=== PATIENT | male | born 1935 | race Caucasian/White ===

== ENCOUNTER 2018-04-13 07:33 | Day surgery (SDC) | payer MEDICARE ==
[~2018-04-13 07:33] MED LIST: MIDAZOLAM INJ 2 MG/2 ML VIAL (J2250) As Ordered; OFLOXACIN 0.3 % (OCUFLOX) OPTH SOL 5ML OS; PHENYLEPHRINE 2.5% OPHTH SOL 2ML OS; PROPARACAINE 0.5% OPHTH SOL 15ML OS; TROPICAMIDE 1% OPHTH SOLN 2ML OS; fentaNYL 100 MCG/2 ML INJECTION (J3010) As Ordered
[2018-04-13 08:09] LABS: BEDSIDE GLUCOSE 127 MG/DL (83-110)
[2018-04-13] MEDS: POVIDONE-IODINE 5% OPHTH PREP SOL 30ML As Ordered (08:37)
[2018-04-13] MEDS: LIDOCAINE 0.75%/EPINEPHRINE 0.025% IN BSS 1ML SYR INTRACAMERAL (OR ONLY) As Ordered (08:37)
[2018-04-13] MEDS: DUOVISC (0.50ML VISCOAT/0.55ML PROVISC) OPHTH KIT As Ordered (08:37)
[2018-04-13] MEDS: BALANCED SALT IRRIGATION SOLUTION 500ML BAG (FOR OR EYE MACHINE) As Ordered (08:37)
[2018-04-13] MEDS: CEFUROXIME 1MG/0.1ML INTRACAMERAL INJ As Ordered (08:37)
[2018-04-13] MEDS ORDERED: ESMOLOL INJ 100MG/10ML VIAL As Ordered (08:40)
== END 2018-04-13 09:35 | disposition home or self-care (01) ==
LOC: M SDC 07:33
DX: H25.12 Age-related nuclear cataract, left eye (principal); I10 Essential (primary) hypertension; E10.9 Type 1 diabetes mellitus without complications; M12.9 Arthropathy, unspecified; R06.02 Shortness of breath; R06.83 Snoring; Z79.899 Other long term (current) drug therapy; Z86.711 Personal history of pulmonary embolism; Z79.01 Long term (current) use of anticoagulants; Z79.4 Long term (current) use of insulin; Z72.0 Tobacco use
CPT/HCPCS: 66984

== ENCOUNTER 2018-05-11 07:24 | Day surgery (SDC) | payer MEDICARE ==
[~2018-05-11] VITALS: Ht 182.9 cm; Wt 89.5 kg
[~2018-05-11 07:24] MED LIST changes: +BALANCED SALT IRRIGATION SOLUTION 500ML BAG (FOR OR EYE MACHINE) As Ordered ONE; +CEFUROXIME 1MG/0.1ML INTRACAMERAL INJ As Ordered ONE; +DUOVISC (0.50ML VISCOAT/0.55ML PROVISC) OPHTH KIT As Ordered ONE; +LEVE1INJ5 SC; +LIDOCAINE 0.75%/EPINEPHRINE 0.025% IN BSS 1ML SYR INTRACAMERAL (OR ONLY) As Ordered ONE; +LISI40TAB PO; -MIDAZOLAM INJ 2 MG/2 ML VIAL (J2250) As Ordered; +MIDAZOLAM INJ 2 MG/2 ML VIAL (J2250) As Ordered ONE; +OFLOXACIN 0.3 % (OCUFLOX) OPTH SOL 5ML OD ONE; -OFLOXACIN 0.3 % (OCUFLOX) OPTH SOL 5ML OS; +PHENYLEPHRINE 2.5% OPHTH SOL 2ML OD ONE; -PHENYLEPHRINE 2.5% OPHTH SOL 2ML OS; +POVIDONE-IODINE 5% OPHTH PREP SOL 30ML As Ordered ONE; +PROBCAP4 PO; +PROPARACAINE 0.5% OPHTH SOL 15ML OD ONE; -PROPARACAINE 0.5% OPHTH SOL 15ML OS; +TROPICAMIDE 1% OPHTH SOLN 2ML OD ONE; -TROPICAMIDE 1% OPHTH SOLN 2ML OS; +TYLE500T78 PO; +VITA100067 PO; +XARE20TA PO; +[UNRECOGNIZED DRUG - REMARK]; -fentaNYL 100 MCG/2 ML INJECTION (J3010) As Ordered; +fentaNYL 100 MCG/2 ML INJECTION (J3010) As Ordered ONE
[2018-05-11] MEDS ORDERED: LABETALOL HCL 100 MG/20 ML VIAL As Ordered ONE (09:16)
[2018-05-11 09:50] VITALS: BP 185/84
--- NOTE | 2018-05-11 16:04 | RO ---
DATE OF PROCEDURE: 05/11/2018 PREOPERATIVE DIAGNOSIS: 1. Visually significant nuclear sclerotic cataract right eye. POSTOPERATIVE DIAGNOSIS: 1. Visually significant nuclear sclerotic cataract right eye. PROCEDURE: 1. Cataract extraction with use of phacoemulsification and placement of intraocular lens AU00T0, 20.5 D, right eye. SURGEON: Salvador Brownlee DO CLAIM TRAINEE: None. ANESTHESIA: Local with monitored anesthesia care (MAC). COMPLICATIONS: None. POSTOPERATIVE CONDITION: Stable. INDICATIONS FOR SURGERY: 1. Blurred vision affecting patients activities of daily living. DESCRIPTION OF PROCEDURE: The patient was seen in the preoperative area and properly identified. The correct operative eye was identified and marked. The patient received topical anesthetic, antibiotics, and topical dilating drops. The patient was then transferred to the operating room. The correct side was re-identified, and a time-out was performed. The eye was prepped and draped in a sterile fashion. The eyelids were isolated with Tegaderm tape, and the lids were held open with an adjustable speculum. A 1.0 mm paracentesis incision was made. Intraocular preservative-free Shugarcaine was then injected into the anterior chamber. Viscoelastic was then injected into the anterior chamber through the paracentesis. Using a 2.4 mm sharp-tipped keratome, the anterior chamber was entered via a temporal clear cornea incision. A continuous curvilinear capsulorrhexis was created with Utrata forceps. Hydrodissection was performed with balanced salt solution (BSS) on a blunt cannula until the nucleus was able to rotate freely. The crystalline lens was phacoemulsified and aspirated. Irrigation/aspiration was used to remove the cortical material. Cohesive viscoelastic was placed into the capsular bag to deepen it. The implant was placed into the capsular bag and allowed to unfold. Placement was confirmed by visualizing the anterior capsulorrhexis. Irrigation/aspiration was used to remove the viscoelastic. The clear corneal incision was hydrated with BSS on a blunt cannula. The lens was well positioned. The incisions were then tested for leaks and found to be negative. The eye was then palpated for appropriate pressure and adjusted accordingly with BSS. The eyelid speculum was then carefully removed. A shield was placed over the eye. The patient tolerated the procedure well and was discharged to the recovery unit in a stable condition. Edited: 05/11/2018 1611 vandana
== END 2018-05-11 09:56 | disposition home or self-care (01) ==
LOC: M SDC 07:24 → EDUNIT# 07:30 → M SDC 09:56
PROVIDERS: ATTEND Ophthalmology
DX: H25.11 Age-related nuclear cataract, right eye (principal); I10 Essential (primary) hypertension; E11.9 Type 2 diabetes mellitus without complications; Z79.4 Long term (current) use of insulin; Z79.01 Long term (current) use of anticoagulants; Z79.899 Other long term (current) drug therapy; F17.210 Nicotine dependence, cigarettes, uncomplicated
CPT/HCPCS: 66984; J2250; J3010; V2632

== ENCOUNTER 2018-05-21 20:12 | Emergency (ER) | payer MEDICARE ==
[~2018-05-21] VITALS: Ht 182.9 cm; Wt 88.6 kg
[~2018-05-21 20:12] MED LIST changes: -BALANCED SALT IRRIGATION SOLUTION 500ML BAG (FOR OR EYE MACHINE) As Ordered ONE; -CEFUROXIME 1MG/0.1ML INTRACAMERAL INJ As Ordered ONE; -DUOVISC (0.50ML VISCOAT/0.55ML PROVISC) OPHTH KIT As Ordered ONE; -LIDOCAINE 0.75%/EPINEPHRINE 0.025% IN BSS 1ML SYR INTRACAMERAL (OR ONLY) As Ordered ONE; +LISI40TA PO; -LISI40TAB PO; -MIDAZOLAM INJ 2 MG/2 ML VIAL (J2250) As Ordered ONE; -OFLOXACIN 0.3 % (OCUFLOX) OPTH SOL 5ML OD ONE; -PHENYLEPHRINE 2.5% OPHTH SOL 2ML OD ONE; -POVIDONE-IODINE 5% OPHTH PREP SOL 30ML As Ordered ONE; -PROPARACAINE 0.5% OPHTH SOL 15ML OD ONE; -TROPICAMIDE 1% OPHTH SOLN 2ML OD ONE; -fentaNYL 100 MCG/2 ML INJECTION (J3010) As Ordered ONE
[2018-05-21] MEDS ORDERED: ONDANSETRON 4MG/2ML VIAL (J2405) As Ordered ONE (20:38)
[2018-05-21] MEDS ORDERED: ONDANSETRON 4MG/2ML VIAL (J2405) IV ONE (20:45)
[2018-05-21 21:09] LABS: BASO # 0.1 10^3/uL (0.0-0.2); BASO % 0.7 % (0.0-1.0); EOS # 0.1 10^3/uL (0.0-0.50); EOS % 1.1 % (0.0-3.0); HEMATOCRIT 38.8 % (42.0-52.0); HEMOGLOBIN 12.7 g/dl (13.5-17.5); LYMPH # 2.3 10^3/uL (1.5-4.5); LYMPH % 24.6 % (24.0-44.0); MEAN CORPUSCULAR HGB CONC 32.7 g/dl (32.0-36.5); MEAN CORPUSCULAR VOLUME 100.8 fl (80.0-96.0); MONO # 0.6 10^3/uL (0.0-0.8); MONO % 6.5 % (0.0-5.0); NEUTROPHILS # 6.1 10^3/uL (1.8-7.7); NEUTROPHILS % 66.7 % (36.0-66.0); PLATELET COUNT, AUTOMATED 328 10^3/uL (150-450); RED BLOOD COUNT 3.85 10^6/uL (4.30-6.10); WHITE BLOOD COUNT 9.2 10^3/uL (4.0-10.0)
[2018-05-21] MEDS ORDERED: MECLIZINE 25 MG TABLET PO ONE (21:15)
[2018-05-21 21:19] VITALS: BP 165/79
[2018-05-21 21:26] LABS: ACETAMINOPHEN LEVEL < 2.0 UG/ML (10.0-30.0); ALBUMIN 3.1 GM/DL (3.2-5.2); ALT/SGPT 22 U/L (12-78); BILIRUBIN,DIRECT 0.2 MG/DL (0.0-0.2); BILIRUBIN,TOTAL 0.5 MG/DL (0.2-1.0); BLOOD UREA NITROGEN 22 MG/DL (7-18); CALCIUM LEVEL 9.3 MG/DL (8.8-10.2); CARBON DIOXIDE LEVEL 26 MEQ/L (21-32); CHLORIDE LEVEL 107 MEQ/L (98-107); CK-MB VALUE MASS < 1.0 NG/ML (<3.6); CPK CREATINE PHOSPHOKINASE 30 U/L (39-308); CREATININE FOR GFR 0.93 MG/DL (0.70-1.30); GLOMERULAR FILTRATION RATE > 60.0 (>35); GLUCOSE, FASTING 199 MG/DL (70-100); MB/CK RELATIVE INDEX 3.33 (< OR =4); POTASSIUM SERUM 4.3 MEQ/L (3.5-5.1); SALICYLATE LEVEL < 1.7 MG/DL (5.0-30.0); SODIUM LEVEL 142 MEQ/L (136-145); TOTAL PROTEIN 6.3 GM/DL (6.4-8.2); TROPONIN I < 0.02 NG/ML (< 0.10)
[2018-05-21] MEDS: NS 1,000 ML IV SCH ×2 (21:34→21:36)
--- NOTE | 2018-05-21 21:48 | REPVR ---
EXAM: CT Head Without Contrast EXAM DATE/TIME: 05/21/2018 8:48 PM CLINICAL HISTORY: 83 years old, male; Signs and symptoms; Dizziness; Additional info: Dizzy/weak TECHNIQUE: Axial computed tomography images of the head/brain without contrast. All CT scans at this facility use at least one of these dose optimization techniques: automated exposure control; mA and/or kV adjustment per patient size (includes targeted exams where dose is matched to clinical indication); or iterative reconstruction. COMPARISON: No relevant prior studies available. FINDINGS: Brain: There is age-related volume loss. There is white matter lucency indicating mild chronic microvascular disease. There is no infarct. There is no hemorrhage or extra-axial collection. There is no mass. Ventricles: Normal. No ventriculomegaly. Bones/joints: Normal. No acute fracture. Sinuses: Normal as visualized. No acute sinusitis. Mastoid air cells: Normal as visualized. No mastoid effusion. Soft tissues: Normal. IMPRESSION: There is mild chronic microvascular disease. There is no acute lesion or injury. Electronically signed by: Ian Cornejo On 05/21/2018 21:48:07 PM
[2018-05-21] MEDS ORDERED: ZOFR4TAB16 PO (22:08)
[2018-05-21] MEDS ORDERED: ONDANSETRON 4 MG TAB (S0181) PO ONE (22:15)
--- NOTE | 2018-05-22 14:42 | ECGEPIP ---
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
--- NOTE | 2018-05-22 14:43 | ECGEPIP ---
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
== END 2018-05-21 22:40 | disposition home or self-care (01) ==
LOC: M ED 20:12
DX: R11.2 Nausea with vomiting, unspecified (principal); E11.9 Type 2 diabetes mellitus without complications; I10 Essential (primary) hypertension; Z79.899 Other long term (current) drug therapy; Z79.01 Long term (current) use of anticoagulants
CPT/HCPCS: 70450; 80048; 80076; 82550; 82553; 84443; 84484; 85025; 93005; 93041; 94760; 96374; 99285; G0480; J2405

== ENCOUNTER → 2020-06-26 | Outpatient (CLI) | payer MEDICARE ==
[~2020-06-26] MED LIST changes: +CIPR-249 PO; +FLOM0.4C39 PO; -LISI40TA PO; +LISI40TA4 PO; +ZOFR4TAB16 PO
--- NOTE | 2020-06-26 09:07 | REP ---
INDICATION: CHEST PAIN ON BREATHING. COMPARISON: No comparison chest x-ray. TECHNIQUE: Two views.. FINDINGS: There are granulomatous calcifications scattered in the lung ma bilaterally. There is a pectus excavatum deformity visible on the lateral radiograph. This exaggerates the cardiac silhouette on the frontal view. The thoracic aorta is somewhat tortuous. Lung ma are otherwise clear. Pulmonary vasculature is not increased. No acute bony abnormality is seen. IMPRESSION: No active disease. Pectus deformity.. <Electronically signed by Shaun Jack > 06/26/20 0903
[2020-06-26 10:34] LABS: BASO # 0.1 10^3/uL (0.0-0.2); BASO % 0.8 % (0.0-1.0); EOS # 0.2 10^3/uL (0.0-0.5); EOS % 3.2 % (0.0-3.0); HEMATOCRIT 34.1 % (42.0-52.0); HEMOGLOBIN 10.8 g/dl (13.5-17.5); LYMPH # 1.8 10^3/uL (1.5-5.0); LYMPH % 29.5 % (24.0-44.0); MEAN CORPUSCULAR HEMOGLOBIN 32.2 pg (27.0-33.0); MEAN CORPUSCULAR HGB CONC 31.7 g/dl (32.0-36.5); MEAN CORPUSCULAR VOLUME 101.8 fl (80.0-96.0); MONO # 0.5 10^3/uL (0.0-0.8); MONO % 8.6 % (2.0-8.0); NEUTROPHILS # 3.6 10^3/uL (1.5-8.5); NEUTROPHILS % 57.7 % (36.0-66.0); PLATELET COUNT, AUTOMATED 258 10^3/uL (150-450); RED BLOOD COUNT 3.35 10^6/uL (4.30-6.10); WHITE BLOOD COUNT 6.2 10^3/uL (4.0-10.0)
[2020-06-26 11:28] LABS: HEMOGLOBIN A1c 8.4 %
[2020-06-26 11:38] LABS: ALBUMIN 2.7 GM/DL (3.2-5.2); BILIRUBIN,TOTAL 0.3 MG/DL (0.2-1.0); CALCIUM LEVEL 8.6 MG/DL (8.8-10.2); CHOLESTEROL RISK RATIO 3.325 (<5); CREATININE FOR GFR 1.66 MG/DL (0.70-1.30); FOLATE 18.1 NG/ML; FREE T4 1.29 NG/DL (0.76-1.46); POTASSIUM SERUM 4.2 MEQ/L (3.5-5.1); THYROID STIMULATING HORMONE 2.65 uIU/ML (0.358-3.740); TOTAL 25(OH) VITAMIN D 49.8 NG/ML (30.0-100.0); TOTAL PROTEIN 6.2 GM/DL (6.4-8.2)
== END ==
LOC: M WUC 08:23
PROVIDERS: ATTEND Physician Assistant
DX: E55.9 Vitamin D deficiency, unspecified (principal); R10.30 Lower abdominal pain, unspecified; I10 Essential (primary) hypertension; R53.83 Other fatigue; R19.7 Diarrhea, unspecified; E11.8 Type 2 diabetes mellitus with unspecified complications; Z79.899 Other long term (current) drug therapy

== ENCOUNTER 2020-06-27 13:28 | Emergency (ER) | payer MEDICARE ==
[~2020-06-27] VITALS: Ht 182.9 cm; Wt 86.4 kg
[~2020-06-27 13:28] MED LIST changes: -CIPR-249 PO; -FLOM0.4C39 PO; -ISOVUE-370 76% 100ML VIAL As Ordered ONE
--- OUTSIDE RECORDS SUMMARY | 2020-06-27 13:42 | CCD ---
Author Author [facility] Address Unknown Phone Unavailable Support Name Relationship Address Phone RE Next Of Kin Unknown Unavailable MITCH BAIG Next Of Kin [address] [place], [place] [id number] Re-disclosure Warning The records that you are about to access may contain information from federally-assisted alcohol or drug abuse programs. If such information is present, then the following federally mandated warning applies: This information has been disclosed to you from records protected by federal confidentiality rules (42 CFR part 2). The federal rules prohibit you from making any further disclosure of this information unless further disclosure is expressly permitted by the written consent of the person to whom it pertains or as otherwise permitted by 42 CFR part 2. A general authorization for the release of medical or other information is NOT sufficient for this purpose. The Federal rules restrict any use of the information to criminally investigate or prosecute any alcohol or drug abuse patient.The records that you are about to access may contain highly sensitive health information, the redisclosure of which is protected by Article 27-F of the [facility] Public Health law. If you continue you may have access to information: Regarding HIV / AIDS; Provided by facilities licensed or operated by the [facility] Office of Mental Health; or Provided by the [facility] Office for People With Developmental Disabilities. If such information is present, then the following [facility] mandated warning applies: This information has been disclosed to you from confidential records which are protected by state law. State law prohibits you from making any further disclosure of this information without the specific written consent of the person to whom it pertains, or as otherwise permitted by law. Any unauthorized further disclosure in violation of state law may result in a fine or alf sentence or both. A general authorization for the release of medical or other information is NOT sufficient authorization for further disc losure. Insurance Providers Payer name Policy type / Coverage type Policy ID Covered constitution party ID Covered constitution party's relationship to garner Policy Garner Plan Information [employer] [id number] SP [id number] MEDICARE [id number] [id number] [employer] [id number] SP [id number]
[2020-06-27] MEDS ORDERED: LIDOCAINE 2% 5ML JELLY UROJET TOP ONE (14:30)
[2020-06-27 14:39] LABS: HEMATOCRIT 35.2 % (42.0-52.0); HEMOGLOBIN 11.2 g/dl (13.5-17.5); MEAN CORPUSCULAR HGB CONC 31.8 g/dl (32.0-36.5); MEAN CORPUSCULAR VOLUME 100.6 fl (80.0-96.0); PLATELET COUNT, AUTOMATED 266 10^3/uL (150-450); WHITE BLOOD COUNT 8.1 10^3/uL (4.0-10.0)
[2020-06-27] MEDS ORDERED: FLOM0.4C39 PO (14:49)
[2020-06-27] MEDS ORDERED: CIPR-249 PO (14:49)
[2020-06-27 15:12] VITALS: BP 179/87
--- OUTSIDE RECORDS SUMMARY | 2020-06-27 15:14 | CCD ---
Author Author [facility] Address Unknown Phone Unavailable Support Name Relationship Address Phone RE Next Of Kin Unknown Unavailable MITCH BAIG Next Of Kin [address] [place], [place] [id number] Re-disclosure Warning The records that you are [...] is protected by Article 27-F of the [facility] Public Health law. If you continue you may have access to information: Regarding HIV / AIDS; Provided by facilities licensed or operated by the [facility] Office of Mental Health; or Provided by the [facility] Office for People With Developmental Disabilities. If such information is present, then the following [facility] mandated warning applies: This information has [...] law may result in a fine or shelter sentence or both. A general authorization for the release of medical or other information is NOT sufficient authorization for further disc losure. Insurance Providers Payer name Policy type / Coverage type Policy ID Covered republican ID Covered republican's relationship to garner Policy Garner Plan Information [employer] [id number] SP [id number] MEDICARE [id number] X39 [employer] [id number] SP [id number]
[2020-06-27 15:15] LABS: ALBUMIN 2.9 GM/DL (3.2-5.2); BILIRUBIN,TOTAL 0.2 MG/DL (0.2-1.0); CALCIUM LEVEL 8.4 MG/DL (8.8-10.2); CREATININE FOR GFR 1.8 MG/DL (0.70-1.30); GLOMERULAR FILTRATION RATE 38.3 (>35); POTASSIUM SERUM 4.7 MEQ/L (3.5-5.1); TOTAL PROTEIN 6.5 GM/DL (6.4-8.2)
== END 2020-06-27 15:42 | disposition home or self-care (01) ==
LOC: M ED 13:28
DX: N41.0 Acute prostatitis (principal); R33.9 Retention of urine, unspecified; E11.8 Type 2 diabetes mellitus with unspecified complications; I10 Essential (primary) hypertension; E55.9 Vitamin D deficiency, unspecified; R10.30 Lower abdominal pain, unspecified; R53.83 Other fatigue; R19.7 Diarrhea, unspecified; R06.02 Shortness of breath; R07.1 Chest pain on breathing; Z79.4 Long term (current) use of insulin; Z79.899 Other long term (current) drug therapy; Z87.891 Personal history of nicotine dependence; Z86.711 Personal history of pulmonary embolism
CPT/HCPCS: 51701; 71275; 74177; 80053; 81001; 82043; 85027; 87086; 99284; Q9967

== ENCOUNTER → 2020-06-27 | Outpatient (REF) | payer MEDICARE ==
[2020-06-27 12:24] LABS: APPEARANCE, URINE CLEAR (CLEAR); BACTERIA, URINE AUTO 1+ (NEGATIVE); BILIRUBIN, URINE AUTO NEGATIVE (NEGATIVE); BLOOD, URINE BLOOD 1+ (NEGATIVE); COLOR, URINE YELLOW (YELLOW); GLUCOSE, URINE (UA) AUTO 3+ mg/dL (NEGATIVE); KETONE, URINE AUTO NEGATIVE (NEGATIVE); LEUKOCYTE ESTERASE, URINE AUTO NEGATIVE (NEGATIVE); MUCUS, URINE SMALL (NEGATIVE); NITRITE, URINE AUTO NEGATIVE (NEGATIVE); PROTEIN, URINE AUTO 3+ mg/dL (NEGATIVE); RBC, URINE AUTO 21 /HPF (0-3); SPECIFIC GRAVITY URINE AUTO 1.014 (1.002-1.035); SQUAMOUS EPITHELIAL CELL UR AU 1 /HPF (0-6); UROBILINOGEN, URINE AUTO 0.2 mg/dL (0.0-2.0); WBC, URINE AUTO 4 /HPF (0-3)
[2020-06-27 13:16] LABS: MAU/CREAT RATIO 2414.4 MCG/MG (0.0-30.0)
== END ==
LOC: M SFHCCLAY 11:33
PROVIDERS: ATTEND Physician Assistant
DX: E55.9 Vitamin D deficiency, unspecified (principal); R10.30 Lower abdominal pain, unspecified; I10 Essential (primary) hypertension; E11.8 Type 2 diabetes mellitus with unspecified complications; R53.83 Other fatigue; R19.7 Diarrhea, unspecified

== ENCOUNTER → 2020-06-27 | Outpatient (CLI) | payer MEDICARE ==
[~2020-06-27] MED LIST changes: +ISOVUE-370 76% 100ML VIAL As Ordered ONE
--- NOTE | 2020-06-27 09:04 | REP ---
INDICATION: SOB, HX OF PE, ABDOMINAL PAIN. COMPARISON: Comparison chest x-ray June 26, 2020.. TECHNIQUE: Contrast dose: 75 ML of Isovue [address] technique: Helical scanning is acquired and overlapping 1.5 mm and contiguous 3 mm axial images are reformatted. In addition, maximum intensity projection and multiplanar re-formation images are generated in sagittal and coronal imaging projections. FINDINGS: There is good opacification in the pulmonary arterial tree. There is no evidence of vessel cut off or filling defect to suggest pulmonary embolus. Homogeneous opacity is seen in the thoracic aorta. There is no evidence of aneurysm or dissection. Lung window settings demonstrate an area of pleuroparenchymal fibrosis in the lingula at the left lung base. There is a tiny 4 mm nodular density in the lingula on page 61 of 116 in series 402 of today's study. There is a granulomatous calcification in the lingula as well. No suspicious pulmonary nodule is appreciated. No infiltrate or mass lesion is seen. There are several granulomatous calcifications in the left upper lobe. An area of linear fibrosis is seen in the right middle lobe. There is no evidence of pleural or pericardial effusion. Mild pectus deformity is seen. This is noted radiographically. There is no evidence of hilar or mediastinal mass or adenopathy.2 In the upper abdomen, there are granulomatous calcifications scattered in the spleen. Normal adrenal glands are observed. The visualized upper abdominal structures are otherwise unremarkable. IMPRESSION: No CT evidence of pulmonary embolus. No active cardiopulmonary disease seen. <Electronically signed by Shaun Jack > 06/27/20 0900
--- NOTE | 2020-06-27 09:06 | REP ---
INDICATION: SOB, HX OF PE, ABDOMINAL PAIN. COMPARISON: None. TECHNIQUE: Helical scanning is acquired and 3 mm axial images re-formatted. Coronal and sagittal MPR images are generated. The CT contrast enhancement dose is 75 mL of intravenous Isovue 370. FINDINGS: Digital preliminary rib builder radiograph demonstrates an unremarkable bowel gas pattern. There are granulomatous calcifications in the spleen and a few in the liver. No focal liver mass lesion is seen. No abnormality is noted in the gallbladder. Normal adrenal glands are observed. Pancreas is unremarkable. The kidneys enhance symmetrically and appear morphologically intact. Small and large bowel loops are unremarkable in the abdomen and pelvis. The urinary bladder is markedly distended extending up above the level of the umbilicus consistent with urinary retention. No bladder mass lesion is observed. Bladder hernandez are slightly thickened. Prostate is enlarged. Seminal vesicles are unremarkable. No pelvic mass or adenopathy is seen. No hydronephrosis noted. No abdominal wall defect or bony destructive lesion is appreciated. IMPRESSION: Findings consistent with urinary retention. Markedly distended bladder filled above the level of the umbilicus. Mild diffuse bladder wall thickening and prostate enlargement. No hydronephrosis. Otherwise no acute abdominal or pelvic abnormality. <Electronically signed by Shaun Jack > 06/27/20 0988
== END ==
LOC: M RAD 07:59
PROVIDERS: ATTEND Physician Assistant
DX: R06.02 Shortness of breath (principal); R07.1 Chest pain on breathing; R10.30 Lower abdominal pain, unspecified; Z86.711 Personal history of pulmonary embolism

== ENCOUNTER → 2020-07-01 | Outpatient (REF) | payer MEDICARE ==
[~2020-07-01] MED LIST changes: +CIPR-249 PO; +FLOM0.4C39 PO
== END ==
LOC: M SFHCCLAY 16:10
PROVIDERS: ATTEND Physician Assistant
DX: Z12.10 Encounter for screening for malignant neoplasm of intestinal tract, unspecified (principal); R19.7 Diarrhea, unspecified

== ENCOUNTER → 2020-07-03 | Outpatient (CLI) | payer MEDICARE ==
[2020-07-03 16:36] LABS: BASO % 0.6 % (0.0-1.0); EOS # 0.2 10^3/uL (0.0-0.5); EOS % 2.7 % (0.0-3.0); HEMATOCRIT 34.1 % (42.0-52.0); HEMOGLOBIN 10.8 g/dl (13.5-17.5); LYMPH # 1.4 10^3/uL (1.5-5.0); MEAN CORPUSCULAR HEMOGLOBIN 32.5 pg (27.0-33.0); MEAN CORPUSCULAR HGB CONC 31.7 g/dl (32.0-36.5); MEAN CORPUSCULAR VOLUME 102.7 fl (80.0-96.0); MONO # 0.5 10^3/uL (0.0-0.8); MONO % 7.9 % (2.0-8.0); NEUTROPHILS # 4.2 10^3/uL (1.5-8.5); NEUTROPHILS % 66.3 % (36.0-66.0); PLATELET COUNT, AUTOMATED 269 10^3/uL (150-450); RED BLOOD COUNT 3.32 10^6/uL (4.30-6.10); WHITE BLOOD COUNT 6.4 10^3/uL (4.0-10.0)
[2020-07-03 17:01] LABS: ALBUMIN 2.9 GM/DL (3.2-5.2); BILIRUBIN,TOTAL 0.2 MG/DL (0.2-1.0); CALCIUM LEVEL 8.7 MG/DL (8.8-10.2); CREATININE FOR GFR 1.69 MG/DL (0.70-1.30); GLOMERULAR FILTRATION RATE 41.2 (>35); PERCENT SATURATION 28.6 % (19.7-50.0); POTASSIUM SERUM 5.1 MEQ/L (3.5-5.1); TOTAL PROTEIN 6.1 GM/DL (6.4-8.2)
== END ==
LOC: M WUC 10:20
PROVIDERS: ATTEND Physician Assistant
DX: R79.89 Other specified abnormal findings of blood chemistry (principal); D64.9 Anemia, unspecified; N40.0 Benign prostatic hyperplasia without lower urinary tract symptoms
CPT/HCPCS: 36415; 80053; 82728; 83550; 83735; 85025; 85046; G0103

== ENCOUNTER → 2020-07-07 | Outpatient (CLI) | payer MEDICARE | LOC: M WUC 12:43 | PROVIDERS: ATTEND Internal Medicine Cardiovascular Disease | DX: R06.02 Shortness of breath (principal) ==

== ENCOUNTER → 2020-07-08 | Outpatient (REF) | payer MEDICARE | LOC: M SFHCCLAY 16:09 | PROVIDERS: ATTEND Physician Assistant | DX: R19.7 Diarrhea, unspecified (principal) ==

== ENCOUNTER → 2020-08-01 | Outpatient (CLI) | payer MEDICARE ==
[2020-08-01 15:28] LABS: ALBUMIN 3.4 GM/DL (3.2-5.2); CALCIUM LEVEL 9.1 MG/DL (8.8-10.2); CREATININE FOR GFR 2.09 MG/DL (0.70-1.30); GLOMERULAR FILTRATION RATE 32.2 (>35); MAGNESIUM LEVEL 2.3 MG/DL (1.8-2.4); PHOSPHORUS LEVEL 4.9 MG/DL (2.5-4.9); POTASSIUM SERUM 4.6 MEQ/L (3.5-5.1)
== END ==
LOC: M WUC 13:16
PROVIDERS: ATTEND Internal Medicine Cardiovascular Disease
DX: I50.32 Chronic diastolic (congestive) heart failure (principal)

== ENCOUNTER → 2020-08-18 | Outpatient (REF) | payer MEDICARE ==
[2020-08-18 19:20] LABS: FERRITIN 107 NG/ML (26-388); IRON (FE) 59 UG/DL (65-175); PERCENT SATURATION 27.8 % (19.7-50.0); TOTAL IRON BINDING CAPACITY 212 UG/DL (250-450); TOTAL PROTEIN 6.8 GM/DL (6.4-8.2)
[2020-08-18 19:26] LABS: FOLATE 21.2 NG/ML; VITAMIN B12 LEVEL > 2000 PG/ML
[2020-08-19 13:39] LABS: ALPHA-1-GLOBULIN % 5.7 % (2.9-4.9); ALPHA-1-GLOBULINS 0.39 GM/DL (0.17-0.41); ALPHA-2-GLOBULINS % 13.4 % (7.1-11.8); BETA-1-GLOBULINS % 5.8 % (4.7-7.2); BETA-2-GLOBULINS % 7.4 % (3.2-6.5); GAMMA GLOBULIN % 17.7 % (11.1-18.8)
[2020-08-19 13:40] LABS: ALPHA-2-GLOBULINS 0.91 GM/DL (0.42-0.99); BETA-1-GLOBULINS 0.39 GM/DL (0.28-0.60)
== END ==
LOC: M LAB REF 16:44
PROVIDERS: ATTEND Internal Medicine Nephrology
DX: D64.9 Anemia, unspecified (principal)

== ENCOUNTER → 2020-11-24 | Outpatient (REF) | payer MEDICARE | LOC: M LAB REF 17:04 | PROVIDERS: ATTEND Internal Medicine Nephrology | DX: N18.32 Chronic kidney disease, stage 3b (principal) ==

== ENCOUNTER → 2020-11-26 | Outpatient (CLI) | payer MEDICARE ==
[2020-11-26 10:03] LABS: AMORPHOUS SEDIMENT SMALL (NEGATIVE); APPEARANCE, URINE CLOUDY (CLEAR); BACTERIA, URINE AUTO 3+ (NEGATIVE); BILIRUBIN, URINE AUTO NEGATIVE (NEGATIVE); BLOOD, URINE BLOOD 1+ (NEGATIVE); COLOR, URINE YELLOW (YELLOW); GLUCOSE, URINE (UA) AUTO 1+ mg/dL (NEGATIVE); KETONE, URINE AUTO NEGATIVE (NEGATIVE); LEUKOCYTE ESTERASE, URINE AUTO 3+ (NEGATIVE); MUCUS, URINE MODERATE (NEGATIVE); NITRITE, URINE AUTO NEGATIVE (NEGATIVE); PROTEIN, URINE AUTO 1+ mg/dL (NEGATIVE); RBC, URINE AUTO 12 /HPF (0-3); SPECIFIC GRAVITY URINE AUTO 1.006 (1.002-1.035); SQUAMOUS EPITHELIAL CELL UR AU 0 /HPF (0-6); UROBILINOGEN, URINE AUTO 0.2 mg/dL (0.0-2.0); WBC, URINE AUTO TNTC /HPF (0-3)
[2020-11-26 10:04] LABS: BASO % 0.5 % (0.0-1.0); EOS # 0.2 10^3/uL (0.0-0.5); EOS % 2.3 % (0.0-3.0); HEMATOCRIT 37.8 % (42.0-52.0); HEMOGLOBIN 12.1 g/dl (13.5-17.5); LYMPH # 2.8 10^3/uL (1.5-5.0); LYMPH % 34.1 % (24.0-44.0); MEAN CORPUSCULAR HEMOGLOBIN 32.1 pg (27.0-33.0); MEAN CORPUSCULAR VOLUME 100.3 fl (80.0-96.0); MONO # 0.7 10^3/uL (0.0-0.8); NEUTROPHILS # 4.4 10^3/uL (1.5-8.5); NEUTROPHILS % 53.6 % (36.0-66.0); PLATELET COUNT, AUTOMATED 296 10^3/uL (150-450); RED BLOOD COUNT 3.77 10^6/uL (4.30-6.10); WHITE BLOOD COUNT 8.2 10^3/uL (4.0-10.0)
[2020-11-26 10:23] LABS: HEMOGLOBIN A1c 10.4 %
[2020-11-26 10:24] LABS: ALBUMIN 3.1 GM/DL (3.2-5.2); BILIRUBIN,TOTAL 0.4 MG/DL (0.2-1.0); CALCIUM LEVEL 9.3 MG/DL (8.8-10.2); CHOLESTEROL RISK RATIO 3.405 (<5); CREATININE FOR GFR 2.03 MG/DL (0.70-1.30); GLOMERULAR FILTRATION RATE 33.3 (>35); POTASSIUM SERUM 4.4 MEQ/L (3.5-5.1); TOTAL PROTEIN 7.2 GM/DL (6.4-8.2)
== END ==
LOC: M WUC 08:32
PROVIDERS: ATTEND Physician Assistant
DX: E11.8 Type 2 diabetes mellitus with unspecified complications (principal)

== ENCOUNTER → 2020-12-01 | Outpatient (CLI) | payer MEDICARE ==
--- NOTE | 2020-12-01 16:59 | REPVR ---
PROCEDURE INFORMATION: Exam: CT Head Without Contrast Exam date and time: 12/01/2020 4:01 PM Age: 85 years old Clinical indication: Other: Paresthesia of skin TECHNIQUE: Imaging protocol: Computed tomography of the head without contrast. Radiation optimization: All CT scans at this facility use at least one of these dose optimization techniques: automated exposure control; mA and/or kV adjustment per patient size (includes targeted exams where dose is matched to clinical indication); or iterative reconstruction. COMPARISON: CT Head without contrast 05/21/2018 8:41 PM FINDINGS: Brain: There is no acute intracranial hemorrhage, cerebral edema, or midline shift. Chronic microvascular ischemic changes are seen in the periventricular white matter. Age-related cerebral and cerebellar volume loss is present. Cerebral ventricles: No hydrocephalus. Paranasal sinuses: There is no acute sinusitis. Mastoid air cells: The mastoid air cells are clear. Orbital cavity: The included orbital structures are unremarkable. Vasculature: Atherosclerotic calcifications are seen involving the cavernous carotid arteries. Bones/joints: No acute fracture. Soft tissues: Unremarkable. IMPRESSION: 1. No acute intracranial abnormality. 2. Atrophy and chronic deep white matter ischemic changes. Electronically signed by: Andreas Carty On 12/01/2020 16:58:57 PM
== END ==
LOC: M RAD 15:56
PROVIDERS: ATTEND Physician Assistant
DX: R20.0 Anesthesia of skin (principal); R20.2 Paresthesia of skin

== ENCOUNTER 2021-02-09 11:59 | Inpatient (IN) | payer MEDICARE ==
[~2021-02-09] VITALS: Ht 182.9 cm; Wt 82.5 kg
[2021-02-09] MEDS: ASPIRIN 81MG ENTERIC TABLET PO SCH (09:00)
[~2021-02-09 11:59] MED LIST changes: -CARV6.25 PO; -CEFD1CAP8 PO; -CLAR10CA3 PO; -CVS1CAP2 PO; -CVS5000S2 PO; -DOXY100T PO; -FERR32TA PO; -FINA5TAB2 PO; -MAGN400T2 PO; -MAPA500C PO; -PRED10TA2 PO; -RISATAB3 PO; -SENN-111 PO; -TORS10TA3 PO; -VITA500038 PO; -XARE15TA PO
--- NOTE | 2021-02-09 13:27 | REP ---
INDICATION: DYSPNEA/COUGH COMPARISON: 06/26/2020 TECHNIQUE: Portable AP view of the chest FINDINGS: Acute left lower lobe opacity consistent with pneumonia. No effusion. No pneumothorax. Mediastinum and cardiac silhouette are stable and within normal limits. Underlying chronic interstitial changes are appreciated along with calcified granulomata. Skeletal structures are stable. IMPRESSION: Acute left lower lobe pneumonia. <Electronically signed by Stiven Perez > 02/09/21 [id number]
[2021-02-09 13:38] LABS: HEMATOCRIT 36.1 % (42.0-52.0); HEMOGLOBIN 11.5 g/dl (13.5-17.5); MEAN CORPUSCULAR HEMOGLOBIN 31.9 pg (27.0-33.0); MEAN CORPUSCULAR HGB CONC 31.9 g/dl (32.0-36.5); MEAN CORPUSCULAR VOLUME 100.3 fl (80.0-96.0); PLATELET COUNT, AUTOMATED 228 10^3/uL (150-450)
[2021-02-09] MEDS ORDERED: ACETAMINOPHEN TAB 650MG DOSE (2X325MG) PO ONE (13:50)
[2021-02-09] MEDS ORDERED: NS 1,000 ML IV ONE (13:50)
[2021-02-09] MEDS ORDERED: AZITHROMYCIN INJ 500 MG, VIAL MATE ADAPTER 1 EACH in NS 250 ML IV ONE (13:50)
[2021-02-09] MEDS ORDERED: cefTRIAXone SOD 2 GM in D5W MINI-BAG PLUS 50 ML IV ONE (13:50)
[2021-02-09 14:16] LABS: CALCIUM LEVEL 8.8 MG/DL (8.8-10.2); CK-MB VALUE MASS 1.2 NG/ML (<3.6); CREATININE FOR GFR 3.7 MG/DL (0.70-1.30); GLOMERULAR FILTRATION RATE 16.7 (>35); MB/CK RELATIVE INDEX 0.56 (< OR =4); POTASSIUM SERUM 5.6 MEQ/L (3.5-5.1)
[2021-02-09 14:17] LABS: ALBUMIN 2.7 GM/DL (3.2-5.2); BILIRUBIN,DIRECT 0.2 MG/DL (0.0-0.2); BILIRUBIN,TOTAL 0.6 MG/DL (0.2-1.0); THYROXINE (T4) 6.3 UG/DL (4.5-12.0); TOTAL PROTEIN 7.2 GM/DL (6.4-8.2); TROPONIN I 0.06 NG/ML (< 0.10)
[2021-02-09 14:19] LABS: LYMPHOCYTES 3 % (16-44); MONOCYTES 6 % (0-5); NEUTROPHILS 57 % (28-66); PLATELET ESTIMATE NORMAL (NORMAL)
[2021-02-09] MEDS ORDERED: NS 2,450 ML in IV 1 EA IV ONE (14:30)
[2021-02-09] MEDS ORDERED: REMDESIVIR 200 MG in NS 250 ML IV ONE ×3 (14:50→21:00)
[2021-02-09] MEDS ORDERED: CVS1CAP2 PO (14:51)
[2021-02-09] MEDS ORDERED: CLAR10CA3 PO (14:51)
[2021-02-09] MEDS ORDERED: CVS5000S2 PO (14:51)
[2021-02-09] MEDS ORDERED: XARE15TA PO (14:51)
[2021-02-09] MEDS ORDERED: FERR32TA PO (14:51)
[2021-02-09] MEDS ORDERED: ZOFR4TAB16 PO (14:51)
[2021-02-09] MEDS ORDERED: TORS10TA3 PO (14:51)
[2021-02-09] MEDS ORDERED: SENN-111 PO (14:51)
[2021-02-09] MEDS ORDERED: MAPA500C PO (14:51)
[2021-02-09] MEDS ORDERED: CARV6.25 PO (14:51)
[2021-02-09] MEDS ORDERED: VITA500038 PO (14:51)
[2021-02-09] MEDS ORDERED: FINA5TAB2 PO (14:51)
[2021-02-09] MEDS ORDERED: FLOM0.4C39 PO (14:51)
[2021-02-09] MEDS ORDERED: HOME MED LIST COMPLETE! XX SCH (14:55)
[2021-02-09 15:05] LABS: ABG BASE EXCESS -2.6 (-2.0-2.0); ABG HCO3 22.4 MEQ/L (22.0-26.0); ABG O2 SATURATION 95.2 % (95.0-99.0); ABG PARTIAL PRESSURE CO2 39.8 mmHg (35.0-45.0); ABG STANDARD HCO3 22.3 MEQ/L (22.0-26.0); ABG TOTAL CO2 23.7 MEQ/L (23.0-31.0); ABG pH (ARTERIAL) 7.369 UNITS (7.350-7.450)
--- NOTE | 2021-02-09 16:02 | REP ---
INDICATION: RENAL FAILURE R/O OBSTRUCTION COMPARISON: CT dated 06/27/2020 TECHNIQUE: Real time carias scale ultrasound examination using curved array transducer. FINDINGS: Bilateral kidneys are normal in reniform shape and echotexture demonstrating increased central sinus fat and renovascular calcifications. No hydronephrosis, nephrolithiasis. Right kidney measures 11.5 x 5.1 x 5.0 cm with vague 1.7 x 1.2 x 2.1 cm midpole cortical hypodensity which cannot be further delineated by ultrasound. Left kidney measures 10.4 x 4.1 x 5.7 cm. IMPRESSION: 1. Bilateral kidneys without evidence for hydronephrosis. 2. 2.1 cm hypodense area within the right kidney cannot be further characterized by ultrasound finding may represent focal lobulation as suggested by prior CT. Consider follow-up pre and postcontrast CT of the abdomen at 9-12 months. <Electronically signed by Stvien Perez > 02/09/21 155
[2021-02-09 16:04] LABS: INR 1.15; PROTHROMBIN TIME 15.2 SECONDS (12.7-14.5)
[2021-02-09 16:05] LABS: PARTIAL THROMBOPLASTIN TIME 34.3 SECONDS (25.9-37.0)
[2021-02-09 16:08] LABS: D-DIMER QUANT 3529.77 ng/ml (<500)
[2021-02-09 16:21] LABS: ALBUMIN 2.3 GM/DL (3.2-5.2); BILIRUBIN,DIRECT 0.2 MG/DL (0.0-0.2); BILIRUBIN,TOTAL 0.3 MG/DL (0.2-1.0); C REACTIVE PROTEIN QUANTITATIV 14.2 MG/DL (0.00-0.30); TOTAL PROTEIN 6.3 GM/DL (6.4-8.2); TROPONIN I 0.07 NG/ML (< 0.10)
[2021-02-09] MEDS: LEVEMIR (INSULIN DETEMIR) 1 UNITS/0.01ML SC SCH ×2 (16:42→22:00)
[2021-02-09] MEDS ORDERED: SODIUM CHLORIDE 0.9% INJ 10 ML SYR IV ONE (16:50)
[2021-02-09 17:00] VITALS: BP 158/64
[2021-02-09] MEDS: DOXYCYCLINE HYCLATE 100 MG in D5W MINI-BAG PLUS 100 ML IV SCH (17:52)
[2021-02-09] MEDS: NS 1,000 ML IV SCH (17:53)
[2021-02-09] MEDS ORDERED: ONDANSETRON 4MG/2ML VIAL IV PRN (19:15)
[2021-02-09] MEDS ORDERED: GLUCOSE 4GM CHEW TABLET PO PRN (19:15)
[2021-02-09] MEDS ORDERED: ACETAMINOPHEN TAB 650MG DOSE (2X325MG) PO PRN (19:15)
[2021-02-09] MEDS ORDERED: DEXTROSE 50% 50 ML SYRINGE IV PRN (19:15)
[2021-02-09] MEDS ORDERED: GLUCAGON INJ 1MG VIAL SC PRN (19:15)
--- NOTE | 2021-02-09 19:59 | HPEPDOC ---
[facility] Medical History & Physical Date of Admission Feb 09, 2021 Date of Service: Feb 09, 2021 History and Physical CHIEF COMPLAINT: sob, weak, sleeping a lot, diarrhea HISTORY OF PRESENT ILLNESS: 85y/o DNR DNI has been vacationing in [place], [place], [place] for the past 2 months. He was treated for catheter-associated UTI in [place] ER 01/23/21with 10 days keflex for UTI, and [place] ER 12/14/20 for clogged mcneill which was changed. He went to his lehr tender and urologist for routine appts and found to be hypoxic with o2 sat 85% RA. For the past 3 days, pt has been increasingly weak, sleeping a lot, sob, trouble getting up to go to the bathroom, with decreased appetite and decreased oral fluid and food intake, diarrhea "a few times a day,"w/o cough, fever, chills, loss of taste or smell, headache, muscle aches. He was sent to the ER for evaluation, and was found to be positive for coronavirus, hypoxic with o2 sat 85% on room air, cxr: infiltrates, and creatinine 3.67 from baseline 1.5 due to diarrhea, decreased oral fluid intake, continued use of torsemide, and intermittently clogged mcneill. 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 REVIEW OF SYSTEMS: 10 point ros negative aside from +findings on HPI HOME MEDICATIONS: Please see below. PHYSICAL EXAMINATION: VITAL SIGNS: see below GENERAL APPEARANCE: mild distress QUECHAN no cyanosis or pallor. HEENT: dry mm. no jvd/thyromegaly or cervical LAD CARDIOVASCULAR:S1S2 RRR no S3 LUNGS: diminished b/l wheezing and crackles ABDOMEN:+bs soft nt nd mcneill w yellow urine EXTREMITIES: no edema, cyanosis LABORATORY DATA: See below. IMAGING: see below MICROBIOLOGY: Please see below. ASSESSMENT: 85y/o DNR DNI has been vacationing in [place], [place], [place] for the past 2 months. He was treated for catheter-associated UTI in [place] ER 01/23/21with 10 days keflex for UTI, and [place] ER 12/14/20 for clogged mcneill wh ich was changed. He went to his lehr tender and urologist for routine appts and found to be hypoxic with o2 sat 85% RA. For the past 3 days, pt has been increasingly weak, sleeping a lot, sob, trouble getting up to go to the bathroom, with decreased appetite and decreased oral fluid and food intake, diarrhea "a few times a day,"w/o cough, fever, chills, loss of taste or smell, headache, muscle aches. He was sent to the ER for evaluation, and was found to be positive for coronavirus, hypoxic with o2 sat 85% on room air, cxr: infiltrates, and creatinine 3.67 from baseline 1.5 due to diarrhea, decreased oral fluid intake, continued use of torsemide, and intermittently clogged mcneill. Acute hypoxic respiratory failure coronavirus pneumonia suspected secondary bacterial pneumonia Diarrhea due to coronavirus vs cdiff from recent abx use Acute on chronic renal failure due to hypovolemia from diarrhea and decreased oral intake, anddiuretic use Lactic Acidosis Recent CAUTI treated with abx Failure to thrive Chronic Urine retention due to enlarged prostate w chronic indwelling mcneill cat heter DM 2, uncontrolled H/o PE/DVT Plan: supportive care with remdesevir, decadron, asa, lovenox, o2 to keep sat>90% for covid. ceftriaxone and doxy for bacterial pna. check sputum cx, urine legionella, strep pneumo, mycoplasma. dc if negative procalcitonin. check 2decho mcneill, renal us no hydronephrosis. nephrology consulted. ivfluid trial . resume flomax. renally dose meds. dc diuretic kayexalate and calcium gluconate insulin for hyperkalemia check ua w reflex urine cx consistent carbs renal diet with fbg qachs, [facility] protocol insulin coverage and levemir sq bid w holding parameters check gi panel, pcr cdiff. DNR/DNI Vital Signs Vital Signs Date Time Temp Pulse Resp B/P (MAP) Pulse Ox O2 Delivery O2 Flow Rate FiO2 02/09/21 17:00 100.0 122 30 158/64 (95) 90 Nasal Cannula 4.0 Laboratory Data Labs 24H Laboratory Tests 2 10/4/21 13:13: Neutrophils (%) (Auto) , Nucleated Red Blood Cells % (auto) 0.0, Neutrophils 57, Band Neutrophils 34H, Lymphocytes (Manual) 3L, Monocytes (Manual) 6H, Platelet Estimate NORMAL, Anion Gap 8, Glomerular Filtration Rate 16.7L, Lactic Acid Level 3.4*H, Calcium Level 8.8, Total Bilirubin 0.6, Direct Bilirubin 0.2, Aspartate Amino Transf (AST/SGOT) 34, Alanine Aminotransferase (ALT/SGPT) 20, Alkaline Phosphatase 73, Total Creatine Kinase 216, Creatine Kinase MB 1.2, Creatine Kinase MB Relative Index 0.56, Troponin I 0.06, DK-Mhc-M-Type Natriure tic Peptide 2437H, Total Protein 7.2, Albumin 2.7L, Albumin/Globulin Ratio 0.6, Thyroid Stimulating Hormone (TSH) 2.000, Thyroxine (T4) 6.3 02/09/21 14:58: Blood Gas Bicarbonate Standard 22.3, Arterial Blood pH 7.369, Arterial Blood Partial Pressure CO2 39.8, Arterial Blood Partial Pressure O2 80.0, Arterial Blood Total CO2 23.7, Arterial Blood HCO3 22.4, Arterial Blood Base Excess - 2.6L, Arterial Blood Oxygen Saturation 95.2 02/09/21 15:35: Total Bilirubin 0.3, Direct Bilirubin 0.2, Aspartate Amino Transf (AST/SGOT) 28, Alanine Aminotransferase (ALT/SGPT) 18, Alkaline Phosphatase 65, Total Creatine Kinase 200, Troponin I 0.07, HD-Fsu-E-Type Natriuretic Peptide 2490H, Total Protein 6.3L, Albumin 2.3L, Albumin/Globulin Ratio 0.6, Prothrombin Time 15.2H, Prothromb Time International Ratio 1.15, Activated Partial Thromboplast Time 34.3, Fibrinogen 717H, D-Dimer, Quantitative 3529.77H, Magnesium Level 2.0, Ferritin 396H, Lactate Dehydrogenase 184, C-Reactive Protein, Quantitative 14.20H 02/09/21 17:47: Lactic Acid Level 2.3*H CBC/BMP Laboratory Tests 02/09/21 13:13 Microbiology Microbiology 02/09/21 Blood Culture, Received Pending 02/09/21 Blood Culture, Received Pending 02/09/21 Respiratory Virus Panel (PCR) ([facility]) - Final, Complete SARS-CoV-2 (COVID 19) 02/09/21 Blood Culture, Received Pending 02/09/21 Blood Culture, Received Pending Home Medications Scheduled Acetaminophen (Mapap) 500 Mg Capsule, 500 MG PO DAILY Carvedilol (Carvedilol) 6.25 Mg Tablet, 6.25 MG PO BID Cholecalciferol (Vitamin D3) (Vitamin D3) 125 Mcg Tablet, 125 MCG PO DAILY Cyanocobalamin (Vitamin B-12) (Vitamin B12) 5,000 Mcg Tab.rapdis, 5,000 MCG PO DAILY Ferrous Gluconate (Ferrous Gluconate) 324 Mg Tablet, 324 MG PO DAILY Finasteride (Finasteride) 5 Mg Tablet, 5 MG PO DAILY Insulin Detemir (Levemir Flextouch) 100 Unit/Ml Inj, 30 UNIT SC QPM Lactobacillus Combo No.10 (Probiotic) 1 Each Capsule, 1 CAP PO DAILY Lisinopril (Lisinopril) 40 Mg Tab, 40 MG PO DAILY Loratadine (Claritin) 10 Mg Capsule, 10 MG PO DAILY Rivaroxaban (Xarelto) 15 Mg Tablet, 15 MG PO DAILY Tamsulosin HCl (Flomax) 0.4 Mg Capsule, 0.4 MG PO DAILY Torsemide (Torsemide) 10 Mg Tablet, 10 MG PO DAILY Scheduled PRN Ondansetron HCl (Zofran) 4 Mg Tablet, 4 MG PO Q6H PRN for nausea/vomiting Sennosides (Senna Lax) 8.6 Mg Tablet, 8.6 MG PO for CONSTIPATION Allergies Coded Allergies: No Known Allergies (Unverified , 04/11/18) A-FIB/CHADSVASC A-FIB History Current/History of A-Fib/PAF?: No Current PO Anticoag Therapy: No Age/Risk Factor Scoring CHADSVASC: CHADSVASC Response (Comments) Value Age Risk Factor Age >/= 75 years old 2 Gender Risk Factor Male 0 Hx of CHF No 0 Hx of HTN Yes 1 Hx of Stroke/TIA/or VTE No 0 Hx of Diabetes Yes 1 Hx of Vascular Disease No 0 Total 4 Treatment Treatment ordered: NONE ROCIO LIANEZ MD Feb 09, 2021 19:23
[2021-02-09 20:00] VITALS: O2SAT 93
[2021-02-09] MEDS ORDERED: SOD POLYSTYRENE SULFONATE SUSP 15 GM/60 ML UD PO ONE (21:00)
[2021-02-09 22:00] VITALS: BP 127/62
[2021-02-09] MEDS: HumaLOG INSULIN (NovoLOG) PER UNIT SC SCH (22:03)
[2021-02-09] MEDS ORDERED: NS 500 ML IV ONE (23:40)
[2021-02-10] VITALS (8 sets, daily range): BP systolic 100–146; BP diastolic 58–71; O2SAT 93–98
[2021-02-10] MEDS: DOXYCYCLINE HYCLATE 100 MG in D5W MINI-BAG PLUS 100 ML IV SCH ×2 (04:30→16:32)
[2021-02-10] MEDS: NS 1,000 ML IV SCH ×2 (04:30→16:32)
[2021-02-10 07:10] LABS: HEMATOCRIT 30.6 % (42.0-52.0); HEMOGLOBIN 9.9 g/dl (13.5-17.5); MEAN CORPUSCULAR HGB CONC 32.4 g/dl (32.0-36.5); PLATELET COUNT, AUTOMATED 176 10^3/uL (150-450); RED BLOOD COUNT 3.09 10^6/uL (4.30-6.10); WHITE BLOOD COUNT 11.6 10^3/uL (4.0-10.0)
[2021-02-10 07:39] LABS: ALBUMIN 1.9 GM/DL (3.2-5.2); ALT/SGPT 15 U/L (12-78); BILIRUBIN,DIRECT < 0.1 MG/DL (0.0-0.2); BILIRUBIN,TOTAL 0.2 MG/DL (0.2-1.0); BLOOD UREA NITROGEN 49 MG/DL (7-18); CALCIUM LEVEL 8.4 MG/DL (8.8-10.2); CARBON DIOXIDE LEVEL 25 MEQ/L (21-32); CHLORIDE LEVEL 105 MEQ/L (98-107); CREATININE FOR GFR 2.86 MG/DL (0.70-1.30); GLOMERULAR FILTRATION RATE 22.4 (>35); GLUCOSE, FASTING 240 MG/DL (70-100); POTASSIUM SERUM 4.6 MEQ/L (3.5-5.1); SODIUM LEVEL 138 MEQ/L (136-145); TOTAL PROTEIN 6.2 GM/DL (6.4-8.2)
[2021-02-10 08:06] LABS: LYMPHOCYTES 14 % (16-44); MONOCYTES 3 % (0-5); NEUTROPHILS 83 % (28-66); PLATELET ESTIMATE NORMAL (NORMAL)
[2021-02-10] MEDS: HumaLOG INSULIN (NovoLOG) PER UNIT SC SCH ×4 (08:32→21:00)
[2021-02-10] MEDS: ASPIRIN 81MG ENTERIC TABLET PO SCH (08:33)
[2021-02-10] MEDS: LEVEMIR (INSULIN DETEMIR) 1 UNITS/0.01ML SC SCH ×2 (08:33→21:45)
[2021-02-10] MEDS: ENOXAPARIN 30MG/0.3ML SYRINGE (J1650 PER 10MG) SC SCH (08:33)
[2021-02-10] MEDS: dexameTHASONE 4 MG/ML 1ML VIAL (J1100 PER 1MG) IV SCH (08:33)
[2021-02-10] MEDS: cefTRIAXone SOD 2 GM in D5W MINI-BAG PLUS 50 ML IV SCH (13:22)
[2021-02-10] MEDS ORDERED: REMDESIVIR 100 MG in NS 250 ML IV SCH ×2 (14:50→18:00)
[2021-02-10] MEDS ORDERED: SODIUM CHLORIDE 0.9% INJ 10 ML SYR IV SCH (15:50)
--- NOTE | 2021-02-10 16:54 | ECGEPIP ---
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 No significant change compared with 02/09/2021 at 1243 hrs. Electronically Signed on 02-10-2021 16:54:08 EDT by Channing Caputo
--- NOTE | 2021-02-10 20:02 | IPNPDOC ---
Subjective Date Seen The patient was seen on 02/10/21. Subjective Chief Complaint/HPI Mr. Perry is an 85-year-old male with diabetes mellitus type 2, hypertension, CKD stage III, and history of CHF who presents with Covid pneumonia with hypoxia. This morning, patient denied any chest pain. Has some shortness of breath. Patient continues to be hypoxic requiring 4 L of oxygen. Objective Physical Examination General Exam: Positive: Alert, Cooperative Eye Exam: Negative: Sclera icteric ENT Exam: Positive: Atraumatic Neck Exam: Positive: Supple Chest Exam: Positive: Diminished Heart Exam: Positive: Tachycardic, Regular Rhythm Abdomen Exam: Positive: Normal bowel sounds, Soft; Negative: Tenderness Extremity Exam: Negative: Edema Neuro Exam: Positive: Normal Speech Psych Exam: Positive: Mood NL Assessment /Plan Assessment Mr. Perry is an 85-year-old male with diabetes mellitus type 2, hypertension, CKD stage III, and history of CHF who presents with Covid pneumonia with hypoxia. Patient will be given remdesivir, dexamethasone, and antibiotics. Procalcitonin elevated at 19. Otherwise, renal function improving. Plan/VTE VTE Prophylaxis Ordered?: Yes Plan 1. Acute hypoxic respiratory failure Patient requiring 4 L of oxygen Secondary to Covid pneumonia 2. Covid pneumonia Continue remdesivir and dexamethasone Procalcitonin elevated at 19 Continue ceftriaxone and doxycycline day 2 We will add on probiotics 3. PARI on CKD stage III On admission creatinine was elevated at 3.7 Baseline creatinine may be 1.7 May be secondary to hypoxia in the setting of lisinopril and torsemide Hold lisinopril and torsemide IV fluids Supportive care and avoid nephrotoxic agents 4. Diabetes mellitus Continue Levemir and sliding scale insulin 5. Hypertension Continue Coreg 6. BPH Continue finasteride and tamsulosin 7. DVT prophylaxis Aspirin and renally dose Lovenox When renal function improves can switch from Lovenox to Xarelto. 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 Disposition: Pending clinical improvement. Pending improvement in oxygen requirements and renal function VS, I&O, 24H, Fishbone Vital Signs/I&O Vital Signs Date Time Temp Pulse Resp B/P (MAP) Pulse Ox O2 Delivery O2 Flow Rate FiO2 02/10/21 14:00 98.4 80 20 135/63 (87) 95 Nasal Cannula 4.0 I&O- Last 24 Hours up to 6 AM 02/10/21 06:00 Intake Total 1755 ml Output Total 550 ml Balance 1205 ml Laboratory Data 24H LABS Laboratory Tests 2 02/09/21 21:51: Bedside Glucose (Misc Panel) 482H 02/09/21 22:23: Lactic Acid Followup at 4 Hours 2.4*H 02/10/21 06:07: Neutrophils (%) (Auto) , Nucleated Red Blood Cells % (auto) 0.0, Neutrophils 83H, Lymphocytes (Manual) 14L, Monocytes (Manual) 3, Red Blood Cell Morphology NORMAL, Platelet Estimate NORMAL, Anion Gap 8, Glomerular Filtration Rate 22.4L, Calcium Level 8.4L, Magnesium Level 2.0, Total Bilirubin 0.2, Direct Bilirubin < 0.1, Aspartate Amino Transf (AST/SGOT) 26, Alanine Aminotransferase (ALT/SGPT) 15, Alkaline Phosphatase 59, Total Protein 6.2L, Albumin 1.9L, Albumin/Globulin Ratio 0.4 02/10/21 11:41: Bedside Glucose (Misc Panel) 125H 02/10/21 17:06: Bedside Glucose (Misc Panel) 146H CBC/BMP Laboratory Tests 02/10/21 06:07 Microbiology Microbiology 02/09/21 Blood Culture, Received Pending 02/09/21 Blood Culture - Preliminary, Resulted No growth after 24 hours . All specim... 02/09/21 Respiratory Virus Panel (PCR) ([facility]) - Final, Complete SARS-CoV-2 (COVID 19) 02/09/21 Blood Culture - Preliminary, Resulted No growth after 24 hours . All specim... 02/09/21 Blood Culture - Preliminary, Resulted No growth after 24 hours . All specim... CLYDE SWANSON DO Feb 10, 2021 17:52
[2021-02-10] MEDS: CARVedilol 6.25 MG TAB PO SCH (21:44)
[2021-02-10] MEDS: LACTOBACILLUS ACIDOPHILUS CAP (BACID) PO SCH (21:44)
[2021-02-10] MEDS: SODIUM CHLORIDE 0.9% INJ 10 ML SYR IV SCH (21:45)
[2021-02-10] MEDS: REMDESIVIR 100 MG in NS 250 ML IV SCH (21:45)
[2021-02-11] MEDS: NS 1,000 ML IV SCH ×3 (02:42→13:16)
[2021-02-11] MEDS: DOXYCYCLINE HYCLATE 100 MG in D5W MINI-BAG PLUS 100 ML IV SCH ×2 (05:28→17:36)
[2021-02-11 05:48] VITALS: BP 144/73
[2021-02-11 06:28] LABS: HEMATOCRIT 29.2 % (42.0-52.0); HEMOGLOBIN 9.4 g/dl (13.5-17.5); MEAN CORPUSCULAR HEMOGLOBIN 31.8 pg (27.0-33.0); MEAN CORPUSCULAR HGB CONC 32.2 g/dl (32.0-36.5); MEAN CORPUSCULAR VOLUME 98.6 fl (80.0-96.0); PLATELET COUNT, AUTOMATED 153 10^3/uL (150-450); RED BLOOD COUNT 2.96 10^6/uL (4.30-6.10)
[2021-02-11 06:42] LABS: INR 1.11; PROTHROMBIN TIME 14.7 SECONDS (12.7-14.5)
[2021-02-11 06:43] LABS: PARTIAL THROMBOPLASTIN TIME 44.2 SECONDS (25.9-37.0)
[2021-02-11 06:47] LABS: ALBUMIN 1.7 GM/DL (3.2-5.2); ALT/SGPT 15 U/L (12-78); BILIRUBIN,DIRECT < 0.1 MG/DL (0.0-0.2); BILIRUBIN,TOTAL 0.2 MG/DL (0.2-1.0); BLOOD UREA NITROGEN 53 MG/DL (7-18); CARBON DIOXIDE LEVEL 21 MEQ/L (21-32); CHLORIDE LEVEL 110 MEQ/L (98-107); CPK CREATINE PHOSPHOKINASE 137 U/L (39-308); CREATININE FOR GFR 2.21 MG/DL (0.70-1.30); FERRITIN 456 NG/ML (26-388); GLOMERULAR FILTRATION RATE 30.2 (>35); GLUCOSE, FASTING 214 MG/DL (70-100); LDH LACTATE DEHYDROGENASE 164 U/L (87-241); NT-PRO BNP 3112 PG/ML (<450); POTASSIUM SERUM 4.4 MEQ/L (3.5-5.1); SODIUM LEVEL 138 MEQ/L (136-145); TOTAL PROTEIN 5.7 GM/DL (6.4-8.2); TROPONIN I 0.02 NG/ML (< 0.10)
[2021-02-11 07:46] LABS: LYMPHOCYTES 8 % (16-44); MONOCYTES 1 % (0-5); NEUTROPHILS 91 % (28-66); PLATELET ESTIMATE NORMAL (NORMAL)
[2021-02-11] MEDS: HumaLOG INSULIN (NovoLOG) PER UNIT SC SCH ×4 (10:17→23:10)
[2021-02-11] MEDS: dexameTHASONE 4 MG/ML 1ML VIAL (J1100 PER 1MG) IV SCH (10:17)
[2021-02-11] MEDS: ASPIRIN 81MG ENTERIC TABLET PO SCH (10:18)
[2021-02-11] MEDS: ENOXAPARIN 30MG/0.3ML SYRINGE (J1650 PER 10MG) SC SCH (10:18)
[2021-02-11] MEDS: LEVEMIR (INSULIN DETEMIR) 1 UNITS/0.01ML SC SCH ×2 (10:18→23:09)
[2021-02-11] MEDS: LACTOBACILLUS ACIDOPHILUS CAP (BACID) PO SCH ×2 (10:18→17:37)
[2021-02-11] MEDS: TAMSULOSIN 0.4 MG CAP PO SCH (10:19)
[2021-02-11] MEDS: FINASTERIDE 5 MG TAB PO SCH (10:19)
[2021-02-11] MEDS: LORATADINE 10 MG TAB PO SCH (10:19)
[2021-02-11] MEDS: CARVedilol 6.25 MG TAB PO SCH ×2 (10:21→23:09)
[2021-02-11] MEDS: cefTRIAXone SOD 2 GM in D5W MINI-BAG PLUS 50 ML IV SCH (13:14)
[2021-02-11 14:26] LABS: APPEARANCE, URINE TURBID (CLEAR); BACTERIA, URINE AUTO 2+ (NEGATIVE); BILIRUBIN, URINE AUTO NEGATIVE (NEGATIVE); BLOOD, URINE BLOOD 1+ (NEGATIVE); COLOR, URINE YELLOW (YELLOW); GLUCOSE, URINE (UA) AUTO 3+ mg/dL (NEGATIVE); KETONE, URINE AUTO NEGATIVE (NEGATIVE); LEUKOCYTE ESTERASE, URINE AUTO 3+ (NEGATIVE); MUCUS, URINE SMALL (NEGATIVE); NITRITE, URINE AUTO NEGATIVE (NEGATIVE); PROTEIN, URINE AUTO 2+ mg/dL (NEGATIVE); RBC, URINE AUTO 136 /HPF (0-3); RENAL EPITHELIAL CELLS 4 /HPF; SPECIFIC GRAVITY URINE AUTO 1.013 (1.002-1.035); SQUAMOUS EPITHELIAL CELL UR AU 2 /HPF (0-6); UROBILINOGEN, URINE AUTO 0.2 mg/dL (0.0-2.0); WBC, URINE AUTO TNTC /HPF (0-3)
[2021-02-11 14:28] VITALS: BP 138/65
--- NOTE | 2021-02-11 15:13 | IPNPDOC ---
Subjective Date Seen The patient was seen on 02/11/21. Subjective Chief Complaint/HPI Mr. Perry is an 85-year-old male with diabetes mellitus type 2, hypertension, CKD stage III, and history of CHF who presents with Covid pneumonia with hypoxia. This morning he felt about the same. Denies chest pain, but still has some shortness of breath. Still requiring 4 L of oxygen. Objective Physical Examination General Exam: Positive: Alert, Cooperative Eye Exam: Negative: Sclera icteric ENT Exam: Positive: Atraumatic Neck Exam: Positive: Supple Chest Exam: Positive: Diminished Heart Exam: Positive: Rate Normal, Regular Rhythm Abdomen Exam: Positive: Normal bowel sounds, Soft; Negative: Tenderness Extremity Exam: Negative: Edema Neuro Exam: Positive: Normal Speech Psych Exam: Positive: Mood NL Assessment /Plan Assessment Mr. Perry is an 85-year-old male with diabetes mellitus type 2, hypertension, CKD stage III, and history of CHF who presents with Covid pneumonia with hypoxia. Patient will be given remdesivir, dexamethasone, and antibiotics. Procalcitonin elevated at 21. Otherwise, renal function improving. Plan/VTE VTE Prophylaxis Ordered?: Yes Plan 1. Acute hypoxic respiratory failure Patient requiring 4 L of oxygen Secondary to Covid pneumonia 2. Covid pneumonia Continue remdesivir and dexamethasone Procalcitonin elevated at 21 Continue ceftriaxone and doxycycline day 3 We will add on probiotics 3. PARI on CKD stage III On admission creatinine was elevated at 3.7 Baseline creatinine may be 1.7 May be secondary to hypoxia in the setting of lisinopril and torsemide Hold lisinopril and torsemide IV fluids Supportive care and avoid nephrotoxic agents 4. Diabetes mellitus Continue Levemir and sliding scale insulin 5. Hypertension Continue Coreg 6. BPH Continue finasteride and tamsulosin 7. DVT prophylaxis Aspirin and renally dose Lovenox When renal function improves can switch from Lovenox to Xarelto. 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 Disposition: Pending clinical improvement. Pending improvement in oxygen re quirements and renal function VS, I&O, 24H, Fishbone Vital Signs/I&O Vital Signs Date Time Temp Pulse Resp B/P (MAP) Pulse Ox O2 Delivery O2 Flow Rate FiO2 02/11/21 14:28 96.7 70 20 138/65 (89) 95 Nasal Cannula 4.0 I&O- Last 24 Hours up to 6 AM 02/11/21 05:59 Intake Total 2370 ml Output Total 1400 ml Balance 970 ml Laboratory Data 24H LABS Laboratory Tests 2 02/10/21 17:06: Bedside Glucose (Misc Panel) 146H 02/10/21 20:01: Bedside Glucose (Misc Panel) 232H 02/11/21 00:00: Urine Color YELLOW, Urine Appearance TURBIDH, Urine pH 5.0, Urine Specific [place] 1.013, Urine Protein 2+H, Urine Glucose (Auto)(UA) 3+H, Urine Ketones (Auto) NEGATIVE, Urine Blood 1+H, Urine Nitrite NEGATIVE, Urine Bilirubin NEGATIVE, Urine Urobilinogen 0.2, Urine Leukocyte Esterase (Auto) 3+H, Urine WBC (Auto) TNTCH, Urine RBC (Auto) 136H, Urine Hyaline Casts (Auto) 0, Urine Bacteria (Auto) 2+H, Urine Squamous Epithelial Cells 2, Urine Renal Epithelial Cells 4, Urine Mucus (Auto) SMALL, Urine Yeast-Like Cells (Auto) LARGEH, Urine Sperm (Auto) 02/11/21 05:46: Neutrophils (%) (Auto) , Nucleated Red Blood Cells % (auto) 0.4H, Neutrophils 91H, Lymphocytes (Manual) 8L, Monocytes (Manual) 1, Red Blood Cell Morphology NORMAL, Platelet Estimate NORMAL, Prothrombin Time 14.7H, Prothromb Time Inter national Ratio 1.11, Activated Partial Thromboplast Time 44.2H, Fibrinogen 680H, Anion Gap 7L, Glomerular Filtration Rate 30.2L, Calcium Level 8.0L, Magnesium Level 2.0, Ferritin 456H, Total Bilirubin 0.2, Direct Bilirubin < 0.1, Aspartate Amino Transf (AST/SGOT) 30, Alanine Aminotransferase (ALT/SGPT) 15, Alkaline Phosphatase 50, Lactate Dehydrogenase 164, Total Creatine Kinase 137, Troponin I 0.02#, HO-Hot-O-Type Natriuretic Peptide 3112H, Total Protein 5.7L, Albumin 1.7L, Albumin/Globulin Ratio 0.4, Procalcitonin 21.26 02/11/21 12:16: Bedside Glucose (Misc Panel) 248H CBC/BMP Laboratory Tests 02/11/21 05:46 Microbiology Microbiology 02/09/21 Blood Culture - Preliminary, Resulted No growth after 24 hours . All specim... 02/09/21 Blood Culture - Preliminary, Resulted No growth after 24 hours . All specim... 02/09/21 Respiratory Virus Panel (PCR) ([facility]) - Final, Complete SARS-CoV-2 (COVID 19) 02/09/21 Blood Culture - Preliminary, Resulted No Growth after 48 hours. All Specime... 02/09/21 Blood Culture - Preliminary, Resulted No Growth after 48 hours. All Specime... CLYDE SWANSON DO Feb 11, 2021 15:13
--- NOTE | 2021-02-11 17:21 | ECGEPIP ---
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
[2021-02-11 20:00] VITALS: O2SAT 95
[2021-02-11 22:00] VITALS: BP 135/60
[2021-02-11] MEDS: SODIUM CHLORIDE 0.9% INJ 10 ML SYR IV SCH (22:00)
[2021-02-11] MEDS: REMDESIVIR 100 MG in NS 250 ML IV SCH (23:11)
[2021-02-12] VITALS (8 sets, daily range): BP systolic 153–180; BP diastolic 76–82; O2SAT 90–95
[2021-02-12] MEDS: NS 1,000 ML IV SCH ×3 (02:45→21:41)
[2021-02-12] MEDS: DOXYCYCLINE HYCLATE 100 MG in D5W MINI-BAG PLUS 100 ML IV SCH (06:01)
[2021-02-12 06:11] LABS: HEMATOCRIT 28.6 % (42.0-52.0); HEMOGLOBIN 9.5 g/dl (13.5-17.5); LYMPH # 0.7 10^3/uL (1.5-5.0); LYMPH % 11.4 % (24.0-44.0); MEAN CORPUSCULAR HEMOGLOBIN 32.2 pg (27.0-33.0); MEAN CORPUSCULAR HGB CONC 33.2 g/dl (32.0-36.5); MEAN CORPUSCULAR VOLUME 96.9 fl (80.0-96.0); MONO # 0.2 10^3/uL (0.0-0.8); MONO % 4.2 % (2.0-8.0); NEUTROPHILS # 4.8 10^3/uL (1.5-8.5); NEUTROPHILS % 83.5 % (36.0-66.0); PLATELET COUNT, AUTOMATED 177 10^3/uL (150-450); RED BLOOD COUNT 2.95 10^6/uL (4.30-6.10); WHITE BLOOD COUNT 5.8 10^3/uL (4.0-10.0)
[2021-02-12 06:33] LABS: CREATININE FOR GFR 1.7 MG/DL (0.70-1.30); GLOMERULAR FILTRATION RATE 40.9 (>35); MAGNESIUM LEVEL 1.8 MG/DL (1.8-2.4); POTASSIUM SERUM 4.7 MEQ/L (3.5-5.1)
[2021-02-12] MEDS: FINASTERIDE 5 MG TAB PO SCH (09:45)
[2021-02-12] MEDS: TAMSULOSIN 0.4 MG CAP PO SCH (09:45)
[2021-02-12] MEDS: ASPIRIN 81MG ENTERIC TABLET PO SCH (09:45)
[2021-02-12] MEDS: LACTOBACILLUS ACIDOPHILUS CAP (BACID) PO SCH ×2 (09:45→18:30)
[2021-02-12] MEDS: LORATADINE 10 MG TAB PO SCH (09:45)
[2021-02-12] MEDS: dexameTHASONE 4 MG/ML 1ML VIAL (J1100 PER 1MG) IV SCH (09:46)
[2021-02-12] MEDS: LEVEMIR (INSULIN DETEMIR) 1 UNITS/0.01ML SC SCH ×2 (09:46→21:34)
[2021-02-12] MEDS: ENOXAPARIN 30MG/0.3ML SYRINGE (J1650 PER 10MG) SC SCH (09:46)
[2021-02-12] MEDS: HumaLOG INSULIN (NovoLOG) PER UNIT SC SCH ×4 (09:47→21:33)
[2021-02-12] MEDS: CARVedilol 6.25 MG TAB PO SCH ×2 (09:49→21:32)
--- NOTE | 2021-02-12 12:59 | IPNPDOC ---
Subjective Date Seen The patient was seen on 02/12/21. Subjective Chief Complaint/HPI Mr. Perry is an 85-year-old male with diabetes mellitus type 2, hypertension, CKD stage III, and history of CHF who presents with Covid pneumonia with hypoxia. Today he still has some shortness of breath, but not worse than yesterday. Denies any chest pain. Patient still requires 4 L of oxygen. Otherwise renal function is improving. Objective Physical Examination General Exam: Positive: Alert, Cooperative Eye Exam: Negative: Sclera icteric ENT Exam: Positive: Atraumatic Neck Exam: Positive: Supple Chest Exam: Positive: Diminished Heart Exam: Positive: Rate Normal, Regular Rhythm Abdomen Exam: Positive: Normal bowel sounds, Soft; Negative: Tenderness Extremity Exam: Negative: Edema Neuro Exam: Positive: Normal Speech Psych Exam: Positive: Mood NL Assessment /Plan Assessment Mr. Perry is an 85-year-old male with diabetes mellitus type 2, hypertension, CKD stage III, and history of CHF who presents with Covid pneumonia with hypoxia. Patient will be given remdesivir, dexamethasone, and antibiotics. Procalcitonin elevated at 21. Otherwise, renal function improving. Plan/VTE VTE Prophylaxis Ordered?: Yes Plan 1. Acute hypoxic respiratory failure Patient requiring 4 L of oxygen Secondary to Covid pneumonia 2. Covid pneumonia Continue remdesivir and dexamethasone Procalcitonin elevated at 21 Continue ceftriaxone and doxycycline day 4 We will add on probiotics 3. PARI on CKD stage III On admission creatinine was elevated at 3.7 Baseline creatinine may be 1.7 May be secondary to hypoxia in the setting of lisinopril and torsemide Hold lisinopril and torsemide IV fluids Supportive care and avoid nephrotoxic agents 4. Diabetes mellitus Continue Levemir and sliding scale insulin 5. Hypertension Continue Coreg 6. BPH Continue finasteride and tamsulosin 7. DVT prophylaxis Aspirin and renally dose Lovenox When renal function improves can switch from Lovenox to Xarelto. 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 Disposition: Pending clinical improvement. Pending improvement in oxygen requirements and renal function VS, I&O, 24H, Fishbone Vital Signs/I&O Vital Signs Date Time Temp Pulse Resp B/P (MAP) Pulse Ox O2 Delivery O2 Flow Rate FiO2 02/12/21 12:00 90 Nasal Cannula 4.0 02/12/21 09:49 71 167/79 02/12/21 06:00 96.3 20 I&O- Last 24 Hours up to 6 AM 02/12/21 06:00 Intake Total 1370 ml Output Total 1275 ml Balance 95 ml Laboratory Data 24H LABS Laboratory Tests 2 02/11/21 16:37: Bedside Glucose (Misc Panel) 221H 02/11/21 20:23: Bedside Glucose (Misc Panel) 201H 02/12/21 05:14: Immature Granulocyte % (Auto) 0.9, Neutrophils (%) (Auto) 83.5H, Lymphocytes (%) (Auto) 11.4L, Monocytes (%) (Auto) 4.2, Eosinophils (%) (Auto) 0.0, Basophils (%) (Auto) 0.0, Neutrophils # (Auto) 4.8, Lymphocytes # (Auto) 0.7L, Monocytes # (Auto) 0.2, Eosinophils # (Auto) 0.0, Basophils # (Auto) 0.0, Nucleated Red Blood Cells % (auto) 0.0 02/12/21 05:48: Anion Gap 7L, Glomerular Filtration Rate 40.9, Calcium Level 8.0L, Magnesium Level 1.8 02/12/21 12:18: Bedside Glucose (Misc Panel) 255H CBC/BMP Laboratory Tests 02/12/21 05:14 02/12/21 05:48 Microbiology Microbiology 02/09/21 Blood Culture - Preliminary, Resulted No Growth after 48 hours. All Specime... 02/09/21 Blood Culture - Preliminary, Resulted No Growth after 48 hours. All Specime... 02/09/21 Respiratory Virus Panel (PCR) ([facility]) - Final, Complete SARS-CoV-2 (COVID 19) 02/09/21 Blood Culture - Preliminary, Resulted No Growth after 48 hours. All Specime... 02/09/21 Blood Culture - Preliminary, Resulted No Growth after 48 hours. All Specime... CLYDE SWANSON DO Feb 12, 2021 12:59
[2021-02-12] MEDS: cefTRIAXone SOD 2 GM in D5W MINI-BAG PLUS 50 ML IV SCH (14:42)
[2021-02-12] MEDS: DOXYCYCLINE HYCLATE 100MG TABLET PO SCH (21:29)
[2021-02-12] MEDS: REMDESIVIR 100 MG in NS 250 ML IV SCH (21:34)
[2021-02-12] MEDS: SODIUM CHLORIDE 0.9% INJ 10 ML SYR IV SCH (22:00)
[2021-02-13] VITALS (8 sets, daily range): BP systolic 114–125; BP diastolic 64–67; O2SAT 94–97
[2021-02-13 08:38] LABS: HEMATOCRIT 31.6 % (42.0-52.0); HEMOGLOBIN 10.4 g/dl (13.5-17.5); MEAN CORPUSCULAR HGB CONC 32.9 g/dl (32.0-36.5); MEAN CORPUSCULAR VOLUME 97.2 fl (80.0-96.0); PLATELET COUNT, AUTOMATED 198 10^3/uL (150-450); RED BLOOD COUNT 3.25 10^6/uL (4.30-6.10); WHITE BLOOD COUNT 5.7 10^3/uL (4.0-10.0)
[2021-02-13 09:23] LABS: INR 1.07; PROTHROMBIN TIME 14.3 SECONDS (12.7-14.5)
[2021-02-13 09:24] LABS: PARTIAL THROMBOPLASTIN TIME 36.9 SECONDS (25.9-37.0)
[2021-02-13 09:31] LABS: ALBUMIN 1.7 GM/DL (3.2-5.2); ALT/SGPT 21 U/L (12-78); BILIRUBIN,DIRECT < 0.1 MG/DL (0.0-0.2); BILIRUBIN,TOTAL 0.2 MG/DL (0.2-1.0); BLOOD UREA NITROGEN 42 MG/DL (7-18); CALCIUM LEVEL 8.1 MG/DL (8.8-10.2); CARBON DIOXIDE LEVEL 19 MEQ/L (21-32); CHLORIDE LEVEL 113 MEQ/L (98-107); CPK CREATINE PHOSPHOKINASE 48 U/L (39-308); CREATININE FOR GFR 1.28 MG/DL (0.70-1.30); FERRITIN 399 NG/ML (26-388); GLOMERULAR FILTRATION RATE 56.7 (>35); GLUCOSE, FASTING 164 MG/DL (70-100); LDH LACTATE DEHYDROGENASE 210 U/L (87-241); MAGNESIUM LEVEL 1.7 MG/DL (1.8-2.4); NT-PRO BNP 31967 PG/ML (<450); POTASSIUM SERUM 4.6 MEQ/L (3.5-5.1); SODIUM LEVEL 140 MEQ/L (136-145); TOTAL PROTEIN 5.1 GM/DL (6.4-8.2); TROPONIN I 0.68 NG/ML (< 0.10)
[2021-02-13] MEDS: NS 1,000 ML IV SCH (09:44)
[2021-02-13] MEDS: HumaLOG INSULIN (NovoLOG) PER UNIT SC SCH ×4 (09:46→20:30)
[2021-02-13] MEDS: LORATADINE 10 MG TAB PO SCH (09:47)
[2021-02-13] MEDS: ASPIRIN 81MG ENTERIC TABLET PO SCH (09:47)
[2021-02-13] MEDS: LEVEMIR (INSULIN DETEMIR) 1 UNITS/0.01ML SC SCH ×2 (09:47→20:29)
[2021-02-13] MEDS: FINASTERIDE 5 MG TAB PO SCH (09:47)
[2021-02-13] MEDS: TAMSULOSIN 0.4 MG CAP PO SCH (09:47)
[2021-02-13] MEDS: DOXYCYCLINE HYCLATE 100MG TABLET PO SCH ×2 (09:47→20:28)
[2021-02-13] MEDS: LACTOBACILLUS ACIDOPHILUS CAP (BACID) PO SCH ×2 (09:47→18:10)
[2021-02-13] MEDS: dexameTHASONE 4 MG/ML 1ML VIAL (J1100 PER 1MG) IV SCH (09:47)
[2021-02-13] MEDS: ENOXAPARIN 30MG/0.3ML SYRINGE (J1650 PER 10MG) SC SCH (09:48)
[2021-02-13] MEDS: CARVedilol 6.25 MG TAB PO SCH ×2 (09:50→20:29)
[2021-02-13 09:55] LABS: ATYPICAL LYMPH 3 % (0-5); LYMPHOCYTES 10 % (16-44); MONOCYTES 8 % (0-5); NEUTROPHILS 79 % (28-66); PLATELET ESTIMATE NORMAL (NORMAL)
[2021-02-13] MEDS ORDERED: FUROSEMIDE 40MG/4ML VIAL (J1940) IV ONE (12:15)
--- NOTE | 2021-02-13 15:05 | IPNPDOC ---
Subjective Date Seen The patient was seen on 02/13/21. Subjective Chief Complaint/HPI Mr. Perry is an 85-year-old male with diabetes mellitus type 2, hypertension, CKD stage III, and history of CHF who presents with Covid pneumonia with hypoxia. This morning patient was feeling better. Denies chest pain and shortness of breath is improved. He is able to be weaned down to 2 L. Later in the day, his labs returned with elevated troponin at 0.68 and elevated BNP at 31,967. Repeat troponin about 5 hours later increased to 0.84. Patient was found to have leaking around Morales. With new Morales insertion, patient drained 1.2 L. Suspect the patient may have had 2 L in his bladder as he was wet and leaking around Morales. Patient feels much better after new Morales insertion. Objective Physical Examination General Exam: Positive: Alert, Cooperative Eye Exam: Negative: Sclera icteric ENT Exam: Positive: Atraumatic Neck Exam: Positive: Supple Chest Exam: Positive: Diminished Heart Exam: Positive: Rate Normal, Regular Rhythm Abdomen Exam: Positive: Normal bowel sounds, Soft; Negative: Tenderness Extremity Exam: Negative: Edema Neuro Exam: Positive: Normal Speech Psych Exam: Positive: Mood NL Assessment /Plan Assessment Mr. Perry is an 85-year-old male with diabetes mellitus type 2, hypertension, CKD stage III, and history of CHF who presents with Covid pneumonia with hypoxia. Patient will be given remdesivir, dexamethasone, and antibiotics. Procalcitonin peaked at 21, now downtrending. Otherwise, renal function improving. Plan/VTE VTE Prophylaxis Ordered?: Yes Plan 1. Acute hypoxic respiratory failure Patient requiring 4 L of oxygen Secondary to Covid pneumonia 2. Covid pneumonia Continue remdesivir and dexamethasone Procalcitonin peaked at 21 now downtrending Continue ceftriaxone and doxycycline day 5 We will add on probiotics 3. PARI on CKD stage III On admission creatinine was elevated at 3.7 Baseline creatinine may be 1.7 May be secondary to hypoxia in the setting of lisinopril and torsemide Hold lisinopril and torsemide Supportive care and avoid nephrotoxic agents IV fluids held as PARI resolved and BNP elevated 4. Diabetes mellitus Continue Levemir and sliding scale insulin 5. Hypertension Continue Coreg 6. BPH Patient has chronic Morales Continue finasteride and tamsulosin 7. Urinary retention Secondary to malfunctioning Morales May have caused elevation in troponin and BNP IV fluids stopped and patient given dose of Lasix 8. DVT prophylaxis Aspirin and renally dose Lovenox When renal function improves can switch from Lovenox to Xarelto. 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 Disposition: If troponin trends downwards, can consider discharge with home oxygen tomorrow VS, I&O, 24H, Fishbone Vital Signs/I&O Vital Signs Date Time Temp Pulse Resp B/P (MAP) Pulse Ox O2 Delivery O2 Flow Rate FiO2 02/13/21 14:00 95.5 78 17 114/67 (83) 96 Nasal Cannula 2.0 I&O- Last 24 Hours up to 6 AM 02/13/21 06:00 Intake Total 1600 ml Output Total 850 ml Balance 750 ml Laboratory Data 24H LABS Laboratory Tests 2 02/12/21 16:29: Bedside Glucose (Misc Panel) 235H 02/12/21 20:09: Bedside Glucose (Misc Panel) 254H 02/13/21 05:11: Bedside Glucose (Misc Panel) 159H 02/13/21 07:47: Neutrophils (%) (Auto) , Nucleated Red Blood Cells % (auto) 0.0, Neutrophils 79H, Lymphocytes (Manual) 10L, Monocytes (Manual) 8H, Atypical Lymphocytes 3, Macrocytosis 1+, Platelet Estimate NORMAL, Prothrombin Time 14.3H, Prothromb Time International Ratio 1.07, Activated Partial Thromboplast Time 36.9, Fibrinogen 606H, Anion Gap 8, Glomerular Filtration Rate 56.7, Calcium Level 8.1L, Magnesium Level 1.7L, Ferritin 399H, Total Bilirubin 0.2, Direct Bilirubin < 0.1, Aspartate Amino Transf (AST/SGOT) 30, Alanine Aminotransferase (ALT/SGPT) 21, Alkaline Phosphatase 50, Lactate Dehydrogenase 210, Total Creatine Kinase 48, Troponin I 0.68H, GM-Kds-C-Type Natriuretic Peptide 41632P, Total Protein 5.1L, Albumin 1.7L, Albumin/Globulin Ratio 0.5, Procalcitonin 5.44 02/13/21 11:58: Bedside Glucose (Misc Panel) 240H 02/13/21 12:32: Troponin I 0.84#H CBC/BMP Laboratory Tests 02/13/21 07:47 Microbiology Microbiology 02/09/21 Blood Culture - Preliminary, Resulted No Growth after 72 hours. All specime... 02/09/21 Blood Culture - Preliminary, Resulted No Growth after 72 hours. All specime... 02/09/21 Respiratory Virus Panel (PCR) ([facility]) - Final, Complete SARS-CoV-2 (COVID 19) 02/09/21 Blood Culture - Preliminary, Resulted No Growth after 72 hours. All specime... 02/09/21 Blood Culture - Preliminary, Resulted No Growth after 72 hours. All specime... CLYDE SWANSON DO Feb 13, 2021 15:05
[2021-02-13] MEDS: cefTRIAXone SOD 2 GM in D5W MINI-BAG PLUS 50 ML IV SCH (15:12)
[2021-02-13] MEDS: REMDESIVIR 100 MG in NS 250 ML IV SCH (20:30)
[2021-02-13] MEDS: SODIUM CHLORIDE 0.9% INJ 10 ML SYR IV SCH (22:25)
[2021-02-14] VITALS (8 sets, daily range): BP systolic 124–151; BP diastolic 68–83; O2SAT 90–97
[2021-02-14 07:56] LABS: HEMATOCRIT 32.6 % (42.0-52.0); HEMOGLOBIN 10.7 g/dl (13.5-17.5); MEAN CORPUSCULAR HEMOGLOBIN 31.2 pg (27.0-33.0); MEAN CORPUSCULAR HGB CONC 32.8 g/dl (32.0-36.5); PLATELET COUNT, AUTOMATED 239 10^3/uL (150-450); RED BLOOD COUNT 3.43 10^6/uL (4.30-6.10); WHITE BLOOD COUNT 5.8 10^3/uL (4.0-10.0)
[2021-02-14] MEDS ORDERED: FUROSEMIDE 40MG/4ML VIAL (J1940) IV ONE (08:00)
[2021-02-14 08:22] LABS: CALCIUM LEVEL 8.1 MG/DL (8.8-10.2); CREATININE FOR GFR 1.46 MG/DL (0.70-1.30); GLOMERULAR FILTRATION RATE 48.7 (>35); MAGNESIUM LEVEL 1.6 MG/DL (1.8-2.4); POTASSIUM SERUM 5.2 MEQ/L (3.5-5.1)
[2021-02-14 08:52] LABS: ATYPICAL LYMPH 2 % (0-5); LYMPHOCYTES 11 % (16-44); MONOCYTES 6 % (0-5); NEUTROPHILS 79 % (28-66); PLASMA CELL 1 % (0-0)
[2021-02-14 08:53] LABS: PLATELET ESTIMATE NORMAL (NORMAL)
[2021-02-14 08:54] LABS: SCHISTOCYTES 1+
[2021-02-14] MEDS ORDERED: PRED10TA2 PO (08:57)
[2021-02-14] MEDS ORDERED: DOXY100T PO (08:57)
[2021-02-14] MEDS ORDERED: RISATAB3 PO (08:57)
[2021-02-14] MEDS ORDERED: CEFD1CAP8 PO (08:57)
[2021-02-14] MEDS ORDERED: MAGN400T2 PO (09:04)
[2021-02-14] MEDS: ENOXAPARIN 30MG/0.3ML SYRINGE (J1650 PER 10MG) SC SCH (09:11)
[2021-02-14] MEDS: dexameTHASONE 4 MG/ML 1ML VIAL (J1100 PER 1MG) IV SCH (09:11)
[2021-02-14] MEDS: LORATADINE 10 MG TAB PO SCH (09:12)
[2021-02-14] MEDS: LEVEMIR (INSULIN DETEMIR) 1 UNITS/0.01ML SC SCH ×2 (09:12→21:56)
[2021-02-14] MEDS: CARVedilol 6.25 MG TAB PO SCH ×2 (09:12→21:56)
[2021-02-14] MEDS: HumaLOG INSULIN (NovoLOG) PER UNIT SC SCH ×4 (09:12→21:56)
[2021-02-14] MEDS: TAMSULOSIN 0.4 MG CAP PO SCH (09:12)
[2021-02-14] MEDS: DOXYCYCLINE HYCLATE 100MG TABLET PO SCH ×2 (09:13→21:56)
[2021-02-14] MEDS: LACTOBACILLUS ACIDOPHILUS CAP (BACID) PO SCH ×2 (09:13→18:22)
[2021-02-14] MEDS: FINASTERIDE 5 MG TAB PO SCH (09:13)
[2021-02-14] MEDS: ASPIRIN 81MG ENTERIC TABLET PO SCH (09:13)
[2021-02-14] MEDS: cefTRIAXone SOD 2 GM in D5W MINI-BAG PLUS 50 ML IV SCH (13:35)
--- NOTE | 2021-02-14 15:51 | IPNPDOC ---
Subjective Date Seen The patient was seen on 02/14/21. Subjective Chief Complaint/HPI Mr. Perry is an 85-year-old male with diabetes mellitus type 2, hypertension, CKD stage III, and history of CHF who presents with Covid pneumonia with hypoxia. Patient was seen this morning. He was excited to go home, but he did not do well with physical therapy. Physically, patient had declined. We will keep him today and recheck tomorrow. Otherwise he does have some hypomagnesemia. We will recheck electrolytes. Objective Physical Examination General Exam: Positive: Alert, Cooperative Eye Exam: Negative: Sclera icteric ENT Exam: Positive: Atraumatic Neck Exam: Positive: Supple Chest Exam: Positive: Diminished Heart Exam: Positive: Rate Normal, Regular Rhythm Abdomen Exam: Positive: Normal bowel sounds, Soft; Negative: Tenderness Extremity Exam: Negative: Edema Neuro Exam: Positive: Normal Speech Psych Exam: Positive: Mood NL Assessment /Plan Assessment Mr. Perry is an 85-year-old male with diabetes mellitus type 2, hypertension, CKD stage III, and history of CHF who presents with Covid pneumonia with hypoxia. Patient will be given remdesivir, dexamethasone, and antibiotics. Procalcitonin peaked at 21, now downtrending. Plan/VTE VTE Prophylaxis Ordered?: Yes Plan 1. Acute hypoxic respiratory failure Patient required 4 L of oxygen at max Now on 2 L of oxygen Secondary to Covid pneumonia 2. Covid pneumonia Continue remdesivir and dexamethasone Procalcitonin peaked at 21 now downtrending Continue ceftriaxone and doxycycline day 6 We will add on probiotics 3. PARI on CKD stage III On admission creatinine was elevated at 3.7 Baseline creatinine may be 1.7 May be secondary to hypoxia in the setting of lisinopril and torsemide Hold lisinopril and torsemide Supportive care and avoid nephrotoxic agents IV fluids held as PARI resolved and BNP elevated 4. Diabetes mellitus Continue Levemir and sliding scale insulin 5. Hypertension Continue Coreg 6. BPH Patient has chronic Morales Continue finasteride and tamsulosin 7. Urinary retention Secondary to malfunctioning Morales May have caused elevation in troponin and BNP IV fluids stopped and patient given dose of Lasix 8. DVT prophylaxis Aspirin and renally dose Lovenox Can restart Xarelto on discharge. 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 Disposition: Pending clinical improvement and improvement in physical status. VS, [facility]&O, [facility] Vital Signs Date Time Temp Pulse Resp B/P (MAP) Pulse Ox O2 Delivery O2 Flow Rate FiO2 02/14/21 14:00 96.1 87 20 124/68 (86) 95 Nasal Cannula 2.0 I&O- Last 24 Hours up to 6 AM 02/14/21 06:00 Intake Total 1510 ml Output Total 3401 ml Balance -1891 ml Laboratory Data 24H LABS Laboratory Tests 2 02/13/21 16:59: Bedside Glucose (Misc Panel) 288H 02/13/21 18:44: Troponin I 0.56#H 02/13/21 20:00: Bedside Glucose (Misc Panel) 286H 02/14/21 05:25: Bedside Glucose (Misc Panel) 255H 02/14/21 06:47: Neutrophils (%) (Auto) , Nucleated Red Blood Cells % (auto) 0.0, Neutrophils 79H, Band Neutrophils 1, Lymphocytes (Manual) 11L, Monocytes (Manual) 6H, Atypical Lymphocytes 2, Plasma Cells 1H, Schistocytes 1+, Platelet Estimate NORMAL, Anion Gap 5L, Glomerular Filtration Rate 48.7, Calcium Level 8.1L, Magnesium Level 1.6L 02/14/21 08:06: Bedside Glucose (Misc Panel) 209H 02/14/21 13:34: Bedside Glucose (Misc Panel) 260H CBC/BMP Laboratory Tests 02/14/21 06:47 Microbiology Microbiology 02/09/21 Blood Culture - Preliminary, Resulted No Growth after 72 hours. All specime... 02/09/21 Blood Culture - Final, Complete NO GROWTH AFTER 5 DAYS 02/09/21 Respiratory Virus Panel (PCR) ([facility]) - Final, Complete SARS-CoV-2 (COVID 19) 02/09/21 Blood Culture - Final, Complete NO GROWTH AFTER 5 DAYS 02/09/21 Blood Culture - Final, Complete NO GROWTH AFTER 5 DAYS CLYDE SWANSON DO Feb 14, 2021 15:51
[2021-02-14 17:50] LABS: CALCIUM LEVEL 8.2 MG/DL (8.8-10.2); CREATININE FOR GFR 1.61 MG/DL (0.70-1.30); GLOMERULAR FILTRATION RATE 43.5 (>35); MAGNESIUM LEVEL 1.5 MG/DL (1.8-2.4); POTASSIUM SERUM 4.4 MEQ/L (3.5-5.1)
[2021-02-14] MEDS: SODIUM CHLORIDE 0.9% INJ 10 ML SYR IV SCH (22:00)
[2021-02-15 04:00] VITALS: BP 143/78
[2021-02-15 08:00] VITALS: O2SAT 95
[2021-02-15 08:30] LABS: HEMATOCRIT 32.8 % (42.0-52.0); HEMOGLOBIN 10.9 g/dl (13.5-17.5); LYMPH # 0.9 10^3/uL (1.5-5.0); LYMPH % 14.2 % (24.0-44.0); MEAN CORPUSCULAR HEMOGLOBIN 31.1 pg (27.0-33.0); MEAN CORPUSCULAR HGB CONC 33.2 g/dl (32.0-36.5); MEAN CORPUSCULAR VOLUME 93.7 fl (80.0-96.0); MONO # 0.7 10^3/uL (0.0-0.8); MONO % 10.8 % (2.0-8.0); NEUTROPHILS # 4.9 10^3/uL (1.5-8.5); NEUTROPHILS % 74.4 % (36.0-66.0); PLATELET COUNT, AUTOMATED 285 10^3/uL (150-450); WHITE BLOOD COUNT 6.6 10^3/uL (4.0-10.0)
[2021-02-15] MEDS: ENOXAPARIN 30MG/0.3ML SYRINGE (J1650 PER 10MG) SC SCH (08:42)
[2021-02-15] MEDS: LEVEMIR (INSULIN DETEMIR) 1 UNITS/0.01ML SC SCH (08:42)
[2021-02-15] MEDS: HumaLOG INSULIN (NovoLOG) PER UNIT SC SCH ×2 (08:42→12:14)
[2021-02-15] MEDS: MAG SULF 1GM/100ML (MAG RUN) 1 GM in IV 1 EA IV SCH ×4 (08:42→12:26)
[2021-02-15 08:43] VITALS: BP 143/77
[2021-02-15] MEDS: FINASTERIDE 5 MG TAB PO SCH (08:43)
[2021-02-15] MEDS: LACTOBACILLUS ACIDOPHILUS CAP (BACID) PO SCH (08:43)
[2021-02-15] MEDS: LORATADINE 10 MG TAB PO SCH (08:43)
[2021-02-15] MEDS: ASPIRIN 81MG ENTERIC TABLET PO SCH (08:43)
[2021-02-15] MEDS: DOXYCYCLINE HYCLATE 100MG TABLET PO SCH (08:43)
[2021-02-15] MEDS: TAMSULOSIN 0.4 MG CAP PO SCH (08:43)
[2021-02-15] MEDS: CARVedilol 6.25 MG TAB PO SCH (08:43)
[2021-02-15] MEDS: dexameTHASONE 4 MG/ML 1ML VIAL (J1100 PER 1MG) IV SCH (08:44)
[2021-02-15 08:48] LABS: INR 1.17; PROTHROMBIN TIME 15.4 SECONDS (12.7-14.5)
[2021-02-15 08:49] LABS: PARTIAL THROMBOPLASTIN TIME 30.9 SECONDS (25.9-37.0)
[2021-02-15 09:08] LABS: ALBUMIN 1.7 GM/DL (3.2-5.2); BILIRUBIN,DIRECT 0.1 MG/DL (0.0-0.2); BILIRUBIN,TOTAL 0.3 MG/DL (0.2-1.0); CALCIUM LEVEL 8.5 MG/DL (8.8-10.2); CREATININE FOR GFR 1.43 MG/DL (0.70-1.30); GLOMERULAR FILTRATION RATE 49.9 (>35); MAGNESIUM LEVEL 1.6 MG/DL (1.8-2.4); POTASSIUM SERUM 4.7 MEQ/L (3.5-5.1); TOTAL PROTEIN 5.1 GM/DL (6.4-8.2); TROPONIN I 0.24 NG/ML (< 0.10)
[2021-02-15] MEDS ORDERED: FUROSEMIDE 40MG/4ML VIAL (J1940) IV ONE (10:30)
--- NOTE | 2021-02-15 11:04 | REP ---
INDICATION: Elevated BNP, heart failure? COMPARISON: 02/09/2021 TECHNIQUE: Portable AP view of the chest FINDINGS: The mediastinum and cardiac silhouette are stable and within normal limits for portable technique. The lung ma again demonstrate chronic changes with superimposed left lower lobe infiltrate similar to prior examination. Skeletal structures are intact. IMPRESSION: Left lower lobe atelectasis/pneumonia. Correlation and follow-up to resolution is required. <Electronically signed by Stiven Perez > 02/15/21 1109
[2021-02-15 12:00] VITALS: O2SAT 93
[2021-02-15] MEDS ORDERED: MAGNESIUM OXIDE 400MG TAB (MAG-OX) PO ONE (12:15)
--- NOTE | 2021-02-15 22:27 | DS.PDOC ---
Discharge Summary General Date of Admission Feb 09, 2021 at 14:32 Date of Discharge Feb 15, 2021 Discharge Summary PROCEDURES PERFORMED DURING STAY: None ADMITTING DIAGNOSES: 1. Acute hypoxic respiratory failure 2. COVID 19 PNA 3. Secondary bacterial pneumonia 4. Acute on chronic kidney disease 5. Lactic acidosis 6. Failure to thrive 7. BPH with chronic indwelling Mcneill catheter 8. DM type 2 9. History of PE/DVT DISCHARGE DIAGNOSES: 1. Acute hypoxic respiratory failure 2. COVID 19 PNA 3. Secondary bacterial pneumonia 4. Acute on chronic kidney disease 5. Lactic acidosis 6. Failure to thrive 7. BPH with chronic indwelling Mcneill catheter 8. DM type 2 9. History of PE/DVT 10. NSTEMI COMPLICATIONS/CHIEF COMPLAINT: Covid-19. HISTORY OF PRESENT ILLNESS: Copied from admitting attending H&P " 85y/o DNR DNI has been vacationing in [place], [place], [place] for the past 2 months. He was treated for catheter-associated UTI in [place] ER 01/23/21with 10 days keflex for UTI, and [place] ER 12/14/20 for clogged mcneill which was changed. He went to his pulp screen operator and urologist for routine appts and found to be hypoxic with o2 sat 85% RA. For the past 3 days, pt has been increasingly weak, sleeping a lot, sob, trouble getting up to go to the bathroom, with decreased appetite and decreased oral fluid and food intake, diarrhea "a few times a day,"w/o cough, fever, chills, loss of taste or smell, headache, muscle aches. He was sent to the ER for evaluation, and was found to be positive for coronavirus, hypoxic with o2 sat 85% on room air, cxr: infiltrates, and creatinine 3.67 from baseline 1.5 due to diarrhea, decreased oral fluid intake, continued use of torsemide, and intermittently clogged mcneill. " HOSPITAL COURSE: During hospitalization, patient's oxygen requirements peaked at 4L. Patient's procalcitonin was elevated and peaked at 21. Patient was given remdesivir, dexamethasone, ceftriaxone and doxycycline. Patient's oxygen requirement improved to 2L. We had planned for discharge, but labs demonstrated an increase in troponin to 0.68, then peak of 0.84. [place] [address]. IVF were discontinued. IVF were given for PARI and renal function impro ladarius by that time. Patient was given Lasix. Patient denied any nausea, chest pain, or worsening dyspnea. I reached out to Cardiology and spoke with Dr. Oswald. Unlikely ACS given that he did not have any chest pain. Patient was then found to have a malfunctioning Mcneill catheter. Patient was leaking urine around the Mcneill. When new Mcneill was inserted, 1200mL were drained and patient felt relief. Nurse suspected in combination to what was leaking, he may have at 1500mL to 2000mL in there previously. Patient was give a few doses of IV Lasix. This morning, patient was cleared to go home with 24/7 care at home, home PT, and home oxygen. Patient felt better and wanted to go home. Patient was discha rged home with a steroid taper and antibiotics. DISCHARGE MEDICATIONS: Please see below. ALLERGIES: Please see below. PHYSICAL EXAMINATION ON DISCHARGE: VITAL SIGNS: Please see below. GENERAL: Comfortable, in no apparent distress HEENT: Head normocephalic, atraumatic NECK: Supple CARDIOVASCULAR EXAMINATION: Regular rate and rhythm RESPIRATORY EXAMINATION: Lungs clear to auscultation bilaterally ABDOMINAL EXAMINATION: Soft, non-tender, normal bowel sounds PSYCHIATRIC EXAMINATION: Normal mood and affect LABORATORY DATA: Please see below. IMAGING: Radiologist interpretation CXR Left lower lobe atelectasis/pneumonia. Correlation and follow-up to resolution is required. PROGNOSIS: Good ACTIVITY: As tolerated. DIET: Carbohydrate consistent diet DISCHARGE PLAN: Home with home health DISPOSITION: Home Health Service. DISCHARGE INSTRUCTIONS: 1. Follow up with your PCP within 1 week 2. Take cefdinir and doxycycline to completion 3. Take steroid taper to completion ITEMS TO FOLLOWUP ON ON OUTPATIENT: 1. Magnesium level 2. Patient may benefit from echocardiogram given the elevation of BNP. DISCHARGE CONDITION: Stable. Total time spent on discharge planning, discharge summary, and medication reconciliation: 45 minutes Vital Signs/I&Os Vital Signs Date Time Temp Pulse Resp B/P (MAP) Pulse Ox O2 Delivery O2 Flow Rate FiO2 02/15/21 12:00 93 Nasal Cannula 2.0 02/15/21 08:43 77 143/77 02/15/21 04:00 97.5 20 I&O- Last 24 Hours up to 6 AM 02/15/21 06:00 Intake Total 1010 ml Output Total 3050 ml Balance -2040 ml Laboratory Data Labs 24H Laboratory Tests 2 02/15/21 06:11: Bedside Glucose (Misc Panel) 202H 02/15/21 07:03: Immature Granulocyte % (Auto) 0.6, Neutrophils (%) (Auto) 74.4H, Lymphocytes (%) (Auto) 14.2L, Monocytes (%) (Auto) 10.8H, Eosinophils (%) (Auto) 0.0, Basophils (%) (Auto) 0.0, Neutrophils # (Auto) 4.9, Lymphocytes # (Auto) 0.9L, Monocytes # (Auto) 0.7, Eosinophils # (Auto) 0.0, Basophils # (Auto) 0.0, Nucleated Red Blood Cells % (auto) 0.0, Prothrombin Time 15.4H, Prothromb Time International Ratio 1.17, Activated Partial Thromboplast Time 30.9, Fibrinogen 425, Anion Gap 9, Glomerular Filtration Rate 49.9, Calcium Level 8.5L, Magnesium Level 1.6L, Ferritin 382, Total Bilirubin 0.3, Direct Bilirubin 0.1, Aspartate Amino Transf (AST/SGOT) 20, Alanine Aminotransferase (ALT/SGPT) 22, Alkaline Phosphatase 47, Lactate Dehydrogenase 183, Total Creatine Kinase 21L, Troponin I 0.24#H, ID-Nvr-R-Type Natriuretic Peptide 03184U, Total Protein 5.1L, Albumin 1.7L, Albumin/Globulin Ratio 0.5, Procalcitonin 1.52 02/15/21 11:33: Bedside Glucose (Misc Panel) 290H CBC/BMP Laboratory Tests 02/15/21 07:03 FSBS Laboratory Tests Test 02/15/21 06:11 02/15/21 11:33 Range/Units Bedside Glucose (Misc Panel) 202 290 83-110 MG/DL Microbiology Microbiology 02/09/21 Blood Culture - Final, Complete NO GROWTH AFTER 5 DAYS 02/09/21 Blood Culture - Final, Complete NO GROWTH AFTER 5 DAYS 02/09/21 Respiratory Virus Panel (PCR) (PRESTON) - Final, Complete SARS-CoV-2 (COVID 19) 02/09/21 Blood Culture - Final, Complete NO GROWTH AFTER 5 DAYS 02/09/21 Blood Culture - Final, Complete NO GROWTH AFTER 5 DAYS Discharge Medications Scheduled Acetaminophen (Mapap) 500 Mg Capsule, 500 MG PO DAILY, (Reported) Carvedilol (Carvedilol) 6.25 Mg Tablet, 6.25 MG PO BID, (Reported) Cefdinir (Cefdinir) 300 Mg Capsule, 300 MG PO BID Cholecalciferol (Vitamin D3) (Vitamin D3) 125 Mcg Tablet, 125 MCG PO DAILY, (Reported) Cyanocobalamin (Vitamin B-12) (Vitamin B12) 5,000 Mcg Tab.rapdis, 5,000 MCG PO DAILY, (Reported) Doxycycline Hyclate (Doxycycline Hyclate) 100 Mg Tablet, 100 MG PO BID Finasteride (Finasteride) 5 Mg Tablet, 5 MG PO DAILY, (Reported) Insulin Detemir (Levemir Flextouch) 100 Unit/Ml Inj, 30 UNIT SC QPM, (Reported) L.acidoph/L.bulg/B.bif/S.therm (Adina-Bid Caplet) 1 Each Tablet, 1 EA PO BIDWM Lactobacillus Combo No.10 (Probiotic) 1 Each Capsule, 1 CAP PO DAILY, (Reported) Loratadine (Claritin) 10 Mg Capsule, 10 MG PO DAILY, (Reported) Magnesium Oxide (Magnesium Oxide) 400 Mg Tablet, 400 MG PO daily@noon Please do not take antibiotic and magnesium at the same time. Magnesium can reduce absorption of antibiotic Prednisone (Prednisone) 10 Mg Tablet, 10 MG PO TAPER Take 4 tabs daily x 3 days, then 3 tabs daily x 3 days, then 2 tabs daily x 3 days, then 1 tab daily x 3 days and stop Rivaroxaban (Xarelto) 15 Mg Tablet, 15 MG PO DAILY, (Reported) Tamsulosin HCl (Flomax) 0.4 Mg Capsule, 0.4 MG PO DAILY, (Reported) Torsemide (Torsemide) 10 Mg Tablet, 10 MG PO DAILY, (Reported) Scheduled PRN Ondansetron HCl (Zofran) 4 Mg Tablet, 4 MG PO Q6H PRN for nausea/vomiting, (Rep orted) Sennosides (Senna Lax) 8.6 Mg Tablet, 8.6 MG PO for CONSTIPATION, (Reported) Allergies Coded Allergies: No Known Allergies (Unverified , 04/11/18) CLYDE SWANSON DO Feb 15, 2021 22:27
--- NOTE | 2021-02-16 18:53 | ECGEPIP ---
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
== END 2021-02-15 15:02 | disposition home health service (06) | DRG 177 ==
LOC: M ED 11:59 → M ED INP 14:32 → ENRESERV 14:43 → M 4MAIN 16:41
PROVIDERS: ADMIT General Practice; ATTEND Internal Medicine
PROC: XW033E5 Introduction of Remdesivir Anti-infective into Peripheral Vein, Percutaneous Approach, New Technology Group 5 (ICD-10-PCS; principal; 2021-02-09)
PROC: 3E0333Z Introduction of Anti-inflammatory into Peripheral Vein, Percutaneous Approach (ICD-10-PCS; 2021-02-09)
DX: U07.1 COVID-19 (principal); J12.82 Pneumonia due to coronavirus disease 2019; J96.01 Acute respiratory failure with hypoxia; J15.9 Unspecified bacterial pneumonia; E87.2 Acidosis; E11.22 Type 2 diabetes mellitus with diabetic chronic kidney disease; N18.30 Chronic kidney disease, stage 3 unspecified; I12.9 Hypertensive chronic kidney disease with stage 1 through stage 4 chronic kidney disease, or unspecified chronic kidney disease; E55.9 Vitamin D deficiency, unspecified; Z66 Do not resuscitate; R62.7 Adult failure to thrive; H91.93 Unspecified hearing loss, bilateral; H26.9 Unspecified cataract; R19.7 Diarrhea, unspecified; M19.90 Unspecified osteoarthritis, unspecified site; N40.1 Benign prostatic hyperplasia with lower urinary tract symptoms; R33.9 Retention of urine, unspecified; E11.65 Type 2 diabetes mellitus with hyperglycemia; Z86.711 Personal history of pulmonary embolism; Z79.4 Long term (current) use of insulin; Z86.718 Personal history of other venous thrombosis and embolism; Z79.01 Long term (current) use of anticoagulants; Z90.49 Acquired absence of other specified parts of digestive tract; Z79.899 Other long term (current) drug therapy

== ENCOUNTER → 2021-02-09 | Outpatient (REF) | payer MEDICARE ==
[~2021-02-09] MED LIST changes: +CARV6.25 PO; +CEFD1CAP8 PO; +CLAR10CA3 PO; +CVS1CAP2 PO; +CVS5000S2 PO; +DOXY100T PO; +FERR32TA PO; +FINA5TAB2 PO; +MAGN400T2 PO; +MAPA500C PO; +PRED10TA2 PO; +RISATAB3 PO; +SENN-111 PO; +TORS10TA3 PO; +VITA500038 PO; +XARE15TA PO
[2021-02-09 18:31] LABS: APPEARANCE, URINE MANUAL TURBID (CLEAR); COLOR, URINE MANUAL YELLOW (YELLOW)
[2021-02-09 18:33] LABS: GLUCOSE, URINE (UA) MANUAL 1+(100 MG/DL) mg/dL (NEGATIVE); PROTEIN, URINE MANUAL 3+ mg/dL (NEGATIVE); SPECIFIC GRAVITY,URINE MANUAL 1.025 (1.002-1.035)
[2021-02-09 18:34] LABS: BILIRUBIN, URINE MANUAL NEGATIVE (NEGATIVE); BLOOD URINE MANUAL POSITIVE (NEGATIVE); KETONE, URINE MANUAL 1+ mg/dL (NEGATIVE); LEUKOCYTE ESTERASE, URINE MAN POSITIVE (NEGATIVE); NITRITE, URINE MANUAL NEGATIVE (NEGATIVE); UROBILINOGEN, URINE MANUAL NORMAL (NORMAL)
[2021-02-09 18:41] LABS: RBC, URINE 40-50 /hpf (0-3); WBC, URINE TNTC /hpf (0-3)
[2021-02-09 18:42] LABS: SQUAMOUS EPITHELIAL CELL URINE SMALL AMOUNT /hpf (SMALL AMT)
[2021-02-09 18:43] LABS: BACTERIA, URINE SMALL AMOUNT; HYALINE CAST, URINE 0-1 /lpf (0-1)
== END ==
LOC: M SMT 17:44
PROVIDERS: ATTEND Urology
DX: N39.0 Urinary tract infection, site not specified (principal)

== ENCOUNTER → 2021-02-23 | Outpatient (REF) | payer MEDICARE ==
[~2021-02-23] MED LIST changes: +CARV6.25 PO; +CEFD1CAP8 PO; +CLAR10CA3 PO; +CVS1CAP2 PO; +CVS5000S2 PO; +DOXY100T PO; +FERR32TA PO; +FINA5TAB2 PO; +MAGN400T2 PO; +MAPA500C PO; +PRED10TA2 PO; +RISATAB3 PO; +SENN-111 PO; +TORS10TA3 PO; +VITA500038 PO; +XARE15TA PO
[2021-02-23 18:42] LABS: APPEARANCE, URINE MANUAL TURBID (CLEAR); COLOR, URINE MANUAL LT YELLOW (YELLOW)
[2021-02-23 18:43] LABS: SPECIFIC GRAVITY,URINE MANUAL 1.015 (1.002-1.035)
[2021-02-23 18:44] LABS: BILIRUBIN, URINE MANUAL NEGATIVE (NEGATIVE); BLOOD URINE MANUAL POSITIVE (NEGATIVE); GLUCOSE, URINE (UA) MANUAL NEGATIVE (NEGATIVE); KETONE, URINE MANUAL NEGATIVE (NEGATIVE); LEUKOCYTE ESTERASE, URINE MAN POSITIVE (NEGATIVE); NITRITE, URINE MANUAL NEGATIVE (NEGATIVE); PROTEIN, URINE MANUAL 1+ mg/dL (NEGATIVE); UROBILINOGEN, URINE MANUAL NORMAL (NORMAL)
[2021-02-23 18:57] LABS: BACTERIA, URINE NONE SEEN; HYALINE CAST, URINE NONE SEEN /lpf (0-1); RBC, URINE 30-40 /hpf (0-3); SQUAMOUS EPITHELIAL CELL URINE NONE SEEN /hpf (SMALL AMT); WBC, URINE TNTC /hpf (0-3)
[2021-02-23 18:58] LABS: YEAST, URINE LARGE AMOUNT
== END ==
LOC: M SMT 16:53
PROVIDERS: ATTEND Nurse Practitioner Women's Health
DX: R33.9 Retention of urine, unspecified (principal)

== ENCOUNTER → 2021-02-24 | Outpatient (REF) | payer MEDICARE | LOC: M LAB REF 17:05 | PROVIDERS: ATTEND Internal Medicine Nephrology | DX: N18.32 Chronic kidney disease, stage 3b (principal) ==

== ENCOUNTER → 2021-02-24 | Outpatient (CLI) | payer MEDICARE ==
--- NOTE | 2021-02-24 14:41 | REP ---
INDICATION: SECONDARY BACTERIAL PNEUMONIA. COMPARISON: 02/15/2021 latest prior TECHNIQUE: AP FINDINGS: The technique utilized in obtaining the radiograph has magnified the cardiac silhouette and accentuated the interstitial markings. The cardiomediastinal silhouette is unchanged. The patchy left lower lobe opacities seen previously have improved. The pleural angles are sharp. No new abnormal opacities have developed. There is no significant change in appearance of the osseous structures. IMPRESSION: Improved left lower lobe pneumonia. <Electronically signed by Keith Long > 02/24/21 1361
[2021-02-24 16:07] LABS: APPEARANCE, URINE TURBID (CLEAR); BACTERIA, URINE AUTO 2+ (NEGATIVE); BILIRUBIN, URINE AUTO NEGATIVE (NEGATIVE); BLOOD, URINE BLOOD 1+ (NEGATIVE); COLOR, URINE YELLOW (YELLOW); GLUCOSE, URINE (UA) AUTO NEGATIVE (NEGATIVE); KETONE, URINE AUTO NEGATIVE (NEGATIVE); LEUKOCYTE ESTERASE, URINE AUTO 3+ (NEGATIVE); NITRITE, URINE AUTO NEGATIVE (NEGATIVE); PROTEIN, URINE AUTO 1+ mg/dL (NEGATIVE); RBC, URINE AUTO TNTC /HPF (0-3); SPECIFIC GRAVITY URINE AUTO 1.009 (1.002-1.035); SQUAMOUS EPITHELIAL CELL UR AU 0 /HPF (0-6); UROBILINOGEN, URINE AUTO 0.2 mg/dL (0.0-2.0); WBC, URINE AUTO TNTC /HPF (0-3)
[2021-02-24 16:10] LABS: BASO % 0.1 % (0.0-1.0); EOS % 0.1 % (0.0-3.0); HEMATOCRIT 34.5 % (42.0-52.0); HEMOGLOBIN 10.8 g/dl (13.5-17.5); LYMPH % 6.1 % (24.0-44.0); MEAN CORPUSCULAR HEMOGLOBIN 31.4 pg (27.0-33.0); MEAN CORPUSCULAR HGB CONC 31.3 g/dl (32.0-36.5); MEAN CORPUSCULAR VOLUME 100.3 fl (80.0-96.0); MONO # 0.7 10^3/uL (0.0-0.8); MONO % 4.2 % (2.0-8.0); NEUTROPHILS # 14.3 10^3/uL (1.5-8.5); NEUTROPHILS % 88.8 % (36.0-66.0); PLATELET COUNT, AUTOMATED 317 10^3/uL (150-450); RED BLOOD COUNT 3.44 10^6/uL (4.30-6.10); WHITE BLOOD COUNT 16.1 10^3/uL (4.0-10.0)
[2021-02-24 16:41] LABS: ALBUMIN 2.3 GM/DL (3.2-5.2); BILIRUBIN,TOTAL 0.9 MG/DL (0.2-1.0); CALCIUM LEVEL 9.7 MG/DL (8.8-10.2); CREATININE FOR GFR 1.74 MG/DL (0.70-1.30); GLOMERULAR FILTRATION RATE 39.8 (>35); MAGNESIUM LEVEL 2.1 MG/DL (1.8-2.4); POTASSIUM SERUM 4.4 MEQ/L (3.5-5.1); TOTAL PROTEIN 5.7 GM/DL (6.4-8.2)
== END ==
LOC: M WUC 13:20
PROVIDERS: ATTEND Physician Assistant
DX: J15.9 Unspecified bacterial pneumonia (principal); E83.42 Hypomagnesemia; R79.89 Other specified abnormal findings of blood chemistry; R33.9 Retention of urine, unspecified; N18.32 Chronic kidney disease, stage 3b

== ENCOUNTER → 2021-03-11 | Outpatient (REF) | payer MEDICARE ==
[2021-03-11 16:17] LABS: APPEARANCE, URINE TURBID (CLEAR); BACTERIA, URINE AUTO 1+ (NEGATIVE); BILIRUBIN, URINE AUTO NEGATIVE (NEGATIVE); BLOOD, URINE BLOOD 1+ (NEGATIVE); COLOR, URINE YELLOW (YELLOW); GLUCOSE, URINE (UA) AUTO 1+ mg/dL (NEGATIVE); KETONE, URINE AUTO NEGATIVE (NEGATIVE); LEUKOCYTE ESTERASE, URINE AUTO 3+ (NEGATIVE); MUCUS, URINE SMALL (NEGATIVE); NITRITE, URINE AUTO NEGATIVE (NEGATIVE); PROTEIN, URINE AUTO 2+ mg/dL (NEGATIVE); RBC, URINE AUTO 42 /HPF (0-3); SPECIFIC GRAVITY URINE AUTO 1.012 (1.002-1.035); SQUAMOUS EPITHELIAL CELL UR AU 0 /HPF (0-6); UROBILINOGEN, URINE AUTO 0.2 mg/dL (0.0-2.0); WBC, URINE AUTO TNTC /HPF (0-3)
== END ==
LOC: M SHH 15:51
PROVIDERS: ATTEND Physician Assistant
DX: N39.0 Urinary tract infection, site not specified (principal)

== ENCOUNTER → 2021-04-14 | Outpatient (REF) | payer MEDICARE ==
[2021-04-14 15:41] LABS: BASO # 0.1 10^3/uL (0.0-0.2); BASO % 0.6 % (0.0-1.0); EOS # 0.3 10^3/uL (0.0-0.5); EOS % 3.7 % (0.0-3.0); HEMATOCRIT 32.4 % (42.0-52.0); LYMPH # 2.4 10^3/uL (1.5-5.0); LYMPH % 27.2 % (24.0-44.0); MEAN CORPUSCULAR HEMOGLOBIN 31.5 pg (27.0-33.0); MEAN CORPUSCULAR HGB CONC 30.9 g/dl (32.0-36.5); MEAN CORPUSCULAR VOLUME 102.2 fl (80.0-96.0); MONO # 0.6 10^3/uL (0.0-0.8); MONO % 6.3 % (2.0-8.0); NEUTROPHILS # 5.5 10^3/uL (1.5-8.5); NEUTROPHILS % 61.8 % (36.0-66.0); PLATELET COUNT, AUTOMATED 224 10^3/uL (150-450); RED BLOOD COUNT 3.17 10^6/uL (4.30-6.10)
[2021-04-14 15:59] LABS: ALBUMIN 2.4 GM/DL (3.2-5.2); BILIRUBIN,TOTAL 0.5 MG/DL (0.2-1.0); CALCIUM LEVEL 8.6 MG/DL (8.8-10.2); CREATININE FOR GFR 1.45 MG/DL (0.70-1.30); POTASSIUM SERUM 4.9 MEQ/L (3.5-5.1); TOTAL PROTEIN 5.9 GM/DL (6.4-8.2)
[2021-04-14 16:04] LABS: HEMOGLOBIN A1c 7.9 %
== END ==
LOC: M SHH 15:05
PROVIDERS: ATTEND Physician Assistant
DX: R53.1 Weakness (principal)

== ENCOUNTER → 2021-04-20 | Outpatient (REF) | payer MEDICARE ==
[~2021-04-20] MED LIST changes: +AMMO12LO TOP; -CEFD1CAP8 PO; +CEFD300C41 PO; +CETI-24 PO; +CVS500CA5 PO
[2021-04-20 17:57] LABS: APPEARANCE, URINE MANUAL TURBID (CLEAR); COLOR, URINE MANUAL DK YELLOW (YELLOW)
[2021-04-20 17:59] LABS: BILIRUBIN, URINE MANUAL NEGATIVE (NEGATIVE); BLOOD URINE MANUAL POSITIVE (NEGATIVE); GLUCOSE, URINE (UA) MANUAL 2+(250 MG/DL) mg/dL (NEGATIVE); KETONE, URINE MANUAL NEGATIVE (NEGATIVE); LEUKOCYTE ESTERASE, URINE MAN POSITIVE (NEGATIVE); NITRITE, URINE MANUAL NEGATIVE (NEGATIVE); PROTEIN, URINE MANUAL 3+ mg/dL (NEGATIVE); UROBILINOGEN, URINE MANUAL NORMAL (NORMAL)
[2021-04-20 19:08] LABS: WBC, URINE TNTC /hpf (0-3)
[2021-04-20 19:10] LABS: BACTERIA, URINE LARGE AMOUNT; HYALINE CAST, URINE NONE SEEN /lpf (0-1); RBC, URINE 30-40 /hpf (0-3); SQUAMOUS EPITHELIAL CELL URINE NONE SEEN /hpf (SMALL AMT); YEAST, URINE LARGE AMOUNT
== END ==
LOC: M SHH 16:16
PROVIDERS: ATTEND Urology
DX: N39.0 Urinary tract infection, site not specified (principal)

== ENCOUNTER → 2021-04-27 | Outpatient (REF) | payer MEDICARE ==
[~2021-04-27] MED LIST changes: -AMMO12LO TOP; +CEFD1CAP8 PO; -CEFD300C41 PO; -CETI-24 PO; -CVS500CA5 PO
== END ==
LOC: M SHH 14:20 → M SMT 14:20
PROVIDERS: ATTEND Urology
DX: N39.0 Urinary tract infection, site not specified (principal)

== ENCOUNTER → 2021-05-27 | Outpatient (REF) | payer MEDICARE ==
[~2021-05-27] MED LIST changes: -CEFD1CAP8 PO; +CEFD300C41 PO
== END ==
LOC: M LAB REF 17:17
PROVIDERS: ATTEND Nurse Practitioner Family
DX: D50.9 Iron deficiency anemia, unspecified (principal)

== ENCOUNTER 2021-06-22 10:19 | Inpatient (IN) | payer MEDICARE ==
[~2021-06-22] VITALS: Ht 182.9 cm; Wt 75.6 kg
[2021-06-22] MEDS ORDERED: ISOVUE-370 76% 100ML VIAL As Ordered ONE (10:26)
[2021-06-22] MEDS ORDERED: NS 500 ML IV ONE (10:50)
[2021-06-22 11:10] LABS: MEAN CORPUSCULAR HEMOGLOBIN 31.6 pg (27.0-33.0); MEAN CORPUSCULAR HGB CONC 31.3 g/dl (32.0-36.5); MEAN CORPUSCULAR VOLUME 101.3 fl (80.0-96.0); PLATELET COUNT, AUTOMATED 253 10^3/uL (150-450); RED BLOOD COUNT 3.16 10^6/uL (4.30-6.10); WHITE BLOOD COUNT 14.3 10^3/uL (4.0-10.0)
[2021-06-22 11:30] LABS: ATYPICAL LYMPH 2 % (0-5); LYMPHOCYTES 13 % (16-44); MONOCYTES 6 % (0-5); NEUTROPHILS 76 % (28-66)
[2021-06-22 11:31] LABS: OVALOCYTES 2+
[2021-06-22 11:36] LABS: CK-MB VALUE MASS < 1.0 NG/ML (<3.6); CPK CREATINE PHOSPHOKINASE 45 U/L (39-308); MB/CK RELATIVE INDEX 2.22 (< OR =4)
[2021-06-22 11:38] LABS: PLATELET ESTIMATE NORMAL (NORMAL)
[2021-06-22 11:40] LABS: TOXIC GRANULATION 1+
[2021-06-22] MEDS: HumaLOG INSULIN (NovoLOG) PER UNIT SC SCH ×2 (12:00→17:51)
[2021-06-22 12:28] LABS: RSV AMPLIFICATION NEGATIVE (NEGATIVE)
[2021-06-22] MEDS ORDERED: FERR32TA PO (12:34)
[2021-06-22 12:47] LABS: CALCIUM LEVEL 9.3 MG/DL (8.8-10.2); CREATININE FOR GFR 2.47 MG/DL (0.70-1.30); GLOMERULAR FILTRATION RATE 26.5 (>35); MAGNESIUM LEVEL 2.3 MG/DL (1.8-2.4); POTASSIUM SERUM 4.6 MEQ/L (3.5-5.1)
[2021-06-22] MEDS ORDERED: GLUCOSE 4GM CHEW TABLET PO PRN (13:00)
[2021-06-22] MEDS ORDERED: MAALOX 30 ML SUSP *UDC PO PRN (13:00)
[2021-06-22] MEDS ORDERED: DEXTROSE 50% 50 ML SYRINGE IV PRN (13:00)
[2021-06-22] MEDS ORDERED: ASPIRIN 81 MG CHEW TABLET PO ONE (13:00)
[2021-06-22] MEDS ORDERED: GLUCAGON INJ 1MG VIAL SC PRN (13:00)
[2021-06-22] MEDS ORDERED: ACETAMINOPHEN TAB 650MG DOSE (2X325MG) PO PRN (13:00)
[2021-06-22] MEDS ORDERED: MOM 30ML SUSPENSION UDC PO PRN (13:00)
[2021-06-22] MEDS ORDERED: ATORVASTATIN 20 MG TAB PO ONE (13:00)
[2021-06-22] MEDS ORDERED: NS 1,000 ML IV SCH (13:25)
[2021-06-22 14:11] LABS: CHOLESTEROL RISK RATIO 2.358 (<5)
[2021-06-22] MEDS ORDERED: AMMO12LO TOP (14:21)
[2021-06-22] MEDS ORDERED: CETI-24 PO (14:21)
[2021-06-22] MEDS ORDERED: CVS500CA5 PO (14:21)
[2021-06-22] MEDS ORDERED: SENNA 8.6 MG TAB (SENOKOT) PO PRN (14:30)
[2021-06-22] MEDS ORDERED: HOME MED LIST COMPLETE! XX SCH (14:30)
[2021-06-22 14:59] LABS: ABG BASE EXCESS -2.1 (-2.0-2.0); ABG HCO3 22.5 MEQ/L (22.0-26.0); ABG O2 SATURATION 92.9 % (95.0-99.0); ABG PARTIAL PRESSURE CO2 37.9 mmHg (35.0-45.0); ABG PARTIAL PRESSURE O2 67.7 mmHg (75.0-100.0); ABG STANDARD HCO3 22.7 MEQ/L (22.0-26.0); ABG TOTAL CO2 23.7 MEQ/L (23.0-31.0); ABG pH (ARTERIAL) 7.392 UNITS (7.350-7.450)
[2021-06-22 15:44] LABS: CK-MB VALUE MASS < 1.0 NG/ML (<3.6); CPK CREATINE PHOSPHOKINASE 74 U/L (39-308); MB/CK RELATIVE INDEX 1.35 (< OR =4)
[2021-06-22] MEDS: guaiFENesin ER 600 MG TAB PO SCH ×2 (17:05→21:00)
[2021-06-22] MEDS: cefTRIAXone SOD 1 GM in D5W MINI-BAG PLUS 50 ML IV SCH (17:50)
[2021-06-22] MEDS ORDERED: ASPIRIN 300 MG SUPP PR ONE (18:00)
[2021-06-22] MEDS: DOXYCYCLINE HYCLATE 100 MG in D5W MINI-BAG PLUS 100 ML IV SCH (18:28)
[2021-06-22] MEDS: DOCUSATE SODIUM 100MG CAPSULE PO SCH (21:00)
[2021-06-22] MEDS: TAMSULOSIN 0.4 MG CAP PO SCH (21:00)
[2021-06-22] MEDS: LACTIC ACID 12% LOTION 225 GM BTL TOP SCH (21:00)
[2021-06-22] MEDS: RIVAROXABAN 15 MG TAB (XARELTO) PO SCH (21:00)
[2021-06-22] MEDS: LACTOBACILLUS ACIDOPHILUS CAP (BACID) PO SCH (21:00)
[2021-06-22] MEDS ORDERED: HumaLOG INSULIN (NovoLOG) PER UNIT SC SCH (21:00)
[2021-06-22] MEDS: FERROUS GLUCONATE 324 MG TAB PO SCH (21:00)
[2021-06-22 21:54] LABS: CK-MB VALUE MASS < 1.0 NG/ML (<3.6); CPK CREATINE PHOSPHOKINASE 117 U/L (39-308); MB/CK RELATIVE INDEX 0.85 (< OR =4)
[2021-06-23] MEDS: LEVEMIR (INSULIN DETEMIR) 1 UNITS/0.01ML SC SCH ×2 (01:14→20:36)
[2021-06-23] MEDS: DOXYCYCLINE HYCLATE 100 MG in D5W MINI-BAG PLUS 100 ML IV SCH ×2 (02:59→16:32)
[2021-06-23 07:32] LABS: BASO % 0.4 % (0.0-1.0); EOS # 0.1 10^3/uL (0.0-0.5); EOS % 0.9 % (0.0-3.0); HEMATOCRIT 29.2 % (42.0-52.0); HEMOGLOBIN 9.4 g/dl (13.5-17.5); LYMPH # 2.6 10^3/uL (1.5-5.0); LYMPH % 23.9 % (24.0-44.0); MEAN CORPUSCULAR HEMOGLOBIN 31.8 pg (27.0-33.0); MEAN CORPUSCULAR HGB CONC 32.2 g/dl (32.0-36.5); MEAN CORPUSCULAR VOLUME 98.6 fl (80.0-96.0); MONO # 0.8 10^3/uL (0.0-0.8); MONO % 7.1 % (2.0-8.0); NEUTROPHILS # 7.2 10^3/uL (1.5-8.5); NEUTROPHILS % 67.1 % (36.0-66.0); PLATELET COUNT, AUTOMATED 223 10^3/uL (150-450); RED BLOOD COUNT 2.96 10^6/uL (4.30-6.10); WHITE BLOOD COUNT 10.7 10^3/uL (4.0-10.0)
[2021-06-23 07:51] LABS: CALCIUM LEVEL 9.2 MG/DL (8.8-10.2); CREATININE FOR GFR 2.22 MG/DL (0.70-1.30); MAGNESIUM LEVEL 2.4 MG/DL (1.8-2.4); POTASSIUM SERUM 4.2 MEQ/L (3.5-5.1)
[2021-06-23] MEDS: HumaLOG INSULIN (NovoLOG) PER UNIT SC SCH ×4 (08:00→23:32)
[2021-06-23] MEDS ORDERED: PREVNAR 13 VACCINE SYRINGE IM ONE (09:00)
[2021-06-23] MEDS: FERROUS GLUCONATE 324 MG TAB PO SCH ×2 (10:48→20:34)
[2021-06-23] MEDS: DOCUSATE SODIUM 100MG CAPSULE PO SCH ×2 (10:48→20:34)
[2021-06-23] MEDS: ASPIRIN 81MG ENTERIC TABLET PO SCH (10:48)
[2021-06-23] MEDS: guaiFENesin ER 600 MG TAB PO SCH ×2 (10:49→20:35)
[2021-06-23] MEDS: LACTIC ACID 12% LOTION 225 GM BTL TOP SCH ×2 (13:00→20:37)
[2021-06-23 13:46] VITALS: BP 147/70
[2021-06-23] MEDS: NS 1,000 ML IV SCH (13:58)
[2021-06-23] MEDS ORDERED: VARIBAR PUDDING 40% w/v 230ML TUBE As Ordered ONE (14:06)
[2021-06-23] MEDS ORDERED: E-Z-PAQUE 96% w/w SUSP 176GM BTL As Ordered ONE (14:06)
[2021-06-23] MEDS ORDERED: VARIBAR NECTAR 40% w/v 240ML SUSP BTL As Ordered ONE (14:06)
[2021-06-23] MEDS: cefTRIAXone SOD 1 GM in D5W MINI-BAG PLUS 50 ML IV SCH (14:10)
[2021-06-23 14:30] VITALS: BP 147/70
[2021-06-23 16:00] VITALS: BP 146/65
[2021-06-23 19:45] VITALS: BP 160/75
[2021-06-23] MEDS: LACTOBACILLUS ACIDOPHILUS CAP (BACID) PO SCH (20:34)
[2021-06-23] MEDS: ATORVASTATIN 20 MG TAB PO SCH (20:35)
[2021-06-23] MEDS: TAMSULOSIN 0.4 MG CAP PO SCH (20:35)
[2021-06-23] MEDS: RIVAROXABAN 15 MG TAB (XARELTO) PO SCH (20:36)
[2021-06-24] MEDS: DOXYCYCLINE HYCLATE 100 MG in D5W MINI-BAG PLUS 100 ML IV SCH ×2 (01:22→14:55)
[2021-06-24 04:05] VITALS: BP 164/76
[2021-06-24] MEDS: NS 1,000 ML IV SCH ×2 (05:23→18:11)
[2021-06-24] MEDS: HumaLOG INSULIN (NovoLOG) PER UNIT SC SCH ×3 (05:30→18:12)
[2021-06-24 05:33] LABS: BASO # 0.1 10^3/uL (0.0-0.2); BASO % 0.6 % (0.0-1.0); EOS # 0.2 10^3/uL (0.0-0.5); EOS % 2.4 % (0.0-3.0); HEMATOCRIT 30.4 % (42.0-52.0); HEMOGLOBIN 9.4 g/dl (13.5-17.5); LYMPH # 1.8 10^3/uL (1.5-5.0); LYMPH % 21.4 % (24.0-44.0); MEAN CORPUSCULAR HEMOGLOBIN 31.4 pg (27.0-33.0); MEAN CORPUSCULAR HGB CONC 30.9 g/dl (32.0-36.5); MEAN CORPUSCULAR VOLUME 101.7 fl (80.0-96.0); MONO # 0.6 10^3/uL (0.0-0.8); MONO % 6.5 % (2.0-8.0); NEUTROPHILS # 5.8 10^3/uL (1.5-8.5); NEUTROPHILS % 68.6 % (36.0-66.0); PLATELET COUNT, AUTOMATED 223 10^3/uL (150-450); RED BLOOD COUNT 2.99 10^6/uL (4.30-6.10); WHITE BLOOD COUNT 8.5 10^3/uL (4.0-10.0)
[2021-06-24 05:53] LABS: CALCIUM LEVEL 9.1 MG/DL (8.8-10.2); CREATININE FOR GFR 1.67 MG/DL (0.70-1.30); GLOMERULAR FILTRATION RATE 41.6 (>35); MAGNESIUM LEVEL 2.2 MG/DL (1.8-2.4); POTASSIUM SERUM 4.1 MEQ/L (3.5-5.1)
[2021-06-24 08:00] VITALS: BP 172/84
[2021-06-24] MEDS: ASPIRIN 81MG ENTERIC TABLET PO SCH (09:00)
[2021-06-24] MEDS: DOCUSATE SODIUM 100MG CAPSULE PO SCH ×2 (09:00→21:00)
[2021-06-24] MEDS: guaiFENesin ER 600 MG TAB PO SCH ×2 (09:00→21:00)
[2021-06-24] MEDS: FERROUS GLUCONATE 324 MG TAB PO SCH ×2 (09:00→21:00)
[2021-06-24] MEDS: LACTIC ACID 12% LOTION 225 GM BTL TOP SCH ×2 (10:00→21:54)
[2021-06-24 12:00] VITALS: BP 164/78
[2021-06-24] MEDS: cefTRIAXone SOD 1 GM in D5W MINI-BAG PLUS 50 ML IV SCH (13:47)
[2021-06-24 20:13] VITALS: BP 167/74
[2021-06-24] MEDS: RIVAROXABAN 15 MG TAB (XARELTO) PO SCH (21:00)
[2021-06-24] MEDS: TAMSULOSIN 0.4 MG CAP PO SCH (21:00)
[2021-06-24] MEDS: ATORVASTATIN 20 MG TAB PO SCH (21:00)
[2021-06-24] MEDS: LACTOBACILLUS ACIDOPHILUS CAP (BACID) PO SCH (21:00)
[2021-06-25] VITALS (9 sets, daily range): BP systolic 148–194; BP diastolic 67–93
[2021-06-25] MEDS: DOXYCYCLINE HYCLATE 100 MG in D5W MINI-BAG PLUS 100 ML IV SCH ×2 (02:57→14:02)
[2021-06-25 06:12] LABS: BASO # 0.1 10^3/uL (0.0-0.2); BASO % 0.8 % (0.0-1.0); EOS # 0.2 10^3/uL (0.0-0.5); EOS % 2.3 % (0.0-3.0); HEMATOCRIT 30.6 % (42.0-52.0); HEMOGLOBIN 9.6 g/dl (13.5-17.5); LYMPH # 1.7 10^3/uL (1.5-5.0); LYMPH % 23.2 % (24.0-44.0); MEAN CORPUSCULAR HEMOGLOBIN 31.6 pg (27.0-33.0); MEAN CORPUSCULAR HGB CONC 31.4 g/dl (32.0-36.5); MEAN CORPUSCULAR VOLUME 100.7 fl (80.0-96.0); MONO # 0.5 10^3/uL (0.0-0.8); MONO % 6.5 % (2.0-8.0); NEUTROPHILS # 4.8 10^3/uL (1.5-8.5); NEUTROPHILS % 66.9 % (36.0-66.0); PLATELET COUNT, AUTOMATED 258 10^3/uL (150-450); RED BLOOD COUNT 3.04 10^6/uL (4.30-6.10); WHITE BLOOD COUNT 7.2 10^3/uL (4.0-10.0)
[2021-06-25 06:24] LABS: CALCIUM LEVEL 9.1 MG/DL (8.8-10.2); CREATININE FOR GFR 1.49 MG/DL (0.70-1.30); GLOMERULAR FILTRATION RATE 47.5 (>35); MAGNESIUM LEVEL 2.3 MG/DL (1.8-2.4); POTASSIUM SERUM 4.1 MEQ/L (3.5-5.1)
[2021-06-25] MEDS: HumaLOG INSULIN (NovoLOG) PER UNIT SC SCH ×4 (07:53→18:14)
[2021-06-25] MEDS: NS 1,000 ML IV SCH (07:54)
[2021-06-25] MEDS: LACTIC ACID 12% LOTION 225 GM BTL TOP SCH ×2 (07:55→22:21)
[2021-06-25] MEDS: DOCUSATE SODIUM 100MG CAPSULE PO SCH (07:57)
[2021-06-25] MEDS: FERROUS GLUCONATE 324 MG TAB PO SCH (07:58)
[2021-06-25] MEDS: guaiFENesin ER 600 MG TAB PO SCH (07:58)
[2021-06-25] MEDS: ASPIRIN 81MG ENTERIC TABLET PO SCH (07:58)
[2021-06-25] MEDS ORDERED: CARVedilol 6.25 MG TAB PO SCH (09:00)
[2021-06-25] MEDS ORDERED: OXYMETAZOLINE 0.05% NASAL SPRAY (AFRIN) PRN (12:05)
[2021-06-25] MEDS: cefTRIAXone SOD 1 GM in D5W MINI-BAG PLUS 50 ML IV SCH (12:21)
[2021-06-25] MEDS: LABETALOL 100MG/20ML VIAL IV SCH ×2 (12:39→18:13)
[2021-06-25] MEDS ORDERED: TORSEMIDE 10 MG TABLET PO SCH (21:00)
[2021-06-25] MEDS ORDERED: SENNA 8.6 MG TAB (SENOKOT) GT PRN (21:35)
[2021-06-25] MEDS ORDERED: MAALOX 30 ML SUSP *UDC GT PRN (21:35)
[2021-06-25] MEDS ORDERED: MOM 30ML SUSPENSION UDC GT PRN (21:35)
[2021-06-25] MEDS ORDERED: GLUCOSE 4GM CHEW TABLET GT PRN (21:35)
[2021-06-25] MEDS: ATORVASTATIN 20 MG TAB GT SCH (22:19)
[2021-06-25] MEDS: LACTOBACILLUS ACIDOPHILUS CAP (BACID) PEG SCH (22:20)
[2021-06-25] MEDS: LEVEMIR (INSULIN DETEMIR) 1 UNITS/0.01ML SC SCH (22:20)
[2021-06-25] MEDS: TORSEMIDE 10 MG TABLET GT SCH (22:20)
[2021-06-25] MEDS: CARVedilol 6.25 MG TAB GT SCH (22:20)
[2021-06-25] MEDS: RIVAROXABAN 15 MG TAB (XARELTO) GT SCH (22:20)
[2021-06-25] MEDS: DOCUSATE SOD LIQ 100MG/10ML UDC GT SCH (22:21)
[2021-06-25] MEDS: FERROUS GLUCONATE 324 MG TAB GT SCH (22:21)
[2021-06-26 00:12] VITALS: BP 168/79
[2021-06-26] MEDS: LABETALOL 100MG/20ML VIAL IV SCH ×4 (01:59→18:51)
[2021-06-26] MEDS: HumaLOG INSULIN (NovoLOG) PER UNIT SC SCH ×4 (01:59→17:34)
[2021-06-26] MEDS: DOXYCYCLINE HYCLATE 100 MG in D5W MINI-BAG PLUS 100 ML IV SCH ×2 (03:15→18:52)
[2021-06-26 04:23] VITALS: BP 163/70
[2021-06-26 04:23] LABS: BASO # 0.1 10^3/uL (0.0-0.2); BASO % 0.8 % (0.0-1.0); EOS # 0.2 10^3/uL (0.0-0.5); EOS % 2.4 % (0.0-3.0); HEMATOCRIT 31.5 % (42.0-52.0); HEMOGLOBIN 9.8 g/dl (13.5-17.5); LYMPH # 1.5 10^3/uL (1.5-5.0); LYMPH % 23.7 % (24.0-44.0); MEAN CORPUSCULAR HEMOGLOBIN 31.3 pg (27.0-33.0); MEAN CORPUSCULAR HGB CONC 31.1 g/dl (32.0-36.5); MEAN CORPUSCULAR VOLUME 100.6 fl (80.0-96.0); MONO # 0.5 10^3/uL (0.0-0.8); MONO % 8.7 % (2.0-8.0); NEUTROPHILS % 63.9 % (36.0-66.0); PLATELET COUNT, AUTOMATED 251 10^3/uL (150-450); RED BLOOD COUNT 3.13 10^6/uL (4.30-6.10); WHITE BLOOD COUNT 6.2 10^3/uL (4.0-10.0)
[2021-06-26 04:47] LABS: CALCIUM LEVEL 9.3 MG/DL (8.8-10.2); CREATININE FOR GFR 1.35 MG/DL (0.70-1.30); GLOMERULAR FILTRATION RATE 53.2 (>35); MAGNESIUM LEVEL 2.3 MG/DL (1.8-2.4)
[2021-06-26 08:50] VITALS: BP 132/76
[2021-06-26] MEDS: FERROUS GLUCONATE 324 MG TAB GT SCH ×2 (09:00→20:23)
[2021-06-26] MEDS: CARVedilol 6.25 MG TAB GT SCH ×2 (09:31→20:21)
[2021-06-26] MEDS: DOCUSATE SOD LIQ 100MG/10ML UDC GT SCH ×2 (09:31→20:19)
[2021-06-26] MEDS: LACTIC ACID 12% LOTION 225 GM BTL TOP SCH ×2 (09:31→20:23)
[2021-06-26] MEDS: ASPIRIN 81 MG CHEW TABLET PEG SCH (09:31)
[2021-06-26 12:34] VITALS: BP 157/75
[2021-06-26] MEDS: cefTRIAXone SOD 1 GM in D5W MINI-BAG PLUS 50 ML IV SCH (12:52)
[2021-06-26 16:00] VITALS: BP 177/84
[2021-06-26] MEDS: ATORVASTATIN 20 MG TAB GT SCH (20:20)
[2021-06-26] MEDS: TORSEMIDE 10 MG TABLET GT SCH (20:21)
[2021-06-26] MEDS: LACTOBACILLUS ACIDOPHILUS CAP (BACID) PEG SCH (20:22)
[2021-06-26] MEDS: LEVEMIR (INSULIN DETEMIR) 1 UNITS/0.01ML SC SCH (20:22)
[2021-06-26] MEDS: RIVAROXABAN 15 MG TAB (XARELTO) GT SCH (20:26)
[2021-06-26 22:00] VITALS: BP 181/81
[2021-06-27] MEDS: HumaLOG INSULIN (NovoLOG) PER UNIT SC SCH ×4 (00:50→17:46)
[2021-06-27] MEDS: LABETALOL 100MG/20ML VIAL IV SCH ×4 (00:51→17:46)
[2021-06-27] MEDS: DOXYCYCLINE HYCLATE 100 MG in D5W MINI-BAG PLUS 100 ML IV SCH (02:25)
[2021-06-27 04:15] VITALS: BP 160/78
[2021-06-27 06:00] VITALS: BP 136/73
[2021-06-27 08:00] VITALS: BP 175/84
[2021-06-27] MEDS: FERROUS GLUCONATE 324 MG TAB GT SCH ×2 (09:00→21:33)
[2021-06-27 09:08] LABS: BASO % 0.3 % (0.0-1.0); EOS % 0.1 % (0.0-3.0); HEMATOCRIT 34.8 % (42.0-52.0); HEMOGLOBIN 10.8 g/dl (13.5-17.5); LYMPH # 2.2 10^3/uL (1.5-5.0); LYMPH % 15.8 % (24.0-44.0); MEAN CORPUSCULAR HEMOGLOBIN 31.1 pg (27.0-33.0); MEAN CORPUSCULAR VOLUME 100.3 fl (80.0-96.0); MONO # 1.1 10^3/uL (0.0-0.8); MONO % 7.6 % (2.0-8.0); NEUTROPHILS # 10.7 10^3/uL (1.5-8.5); NEUTROPHILS % 75.4 % (36.0-66.0); PLATELET COUNT, AUTOMATED 267 10^3/uL (150-450); RED BLOOD COUNT 3.47 10^6/uL (4.30-6.10); WHITE BLOOD COUNT 14.1 10^3/uL (4.0-10.0)
[2021-06-27 09:12] LABS: CALCIUM LEVEL 9.7 MG/DL (8.8-10.2); CREATININE FOR GFR 1.58 MG/DL (0.70-1.30); GLOMERULAR FILTRATION RATE 44.4 (>35); MAGNESIUM LEVEL 2.3 MG/DL (1.8-2.4); POTASSIUM SERUM 3.9 MEQ/L (3.5-5.1)
[2021-06-27] MEDS: DOCUSATE SOD LIQ 100MG/10ML UDC GT SCH ×2 (09:58→21:32)
[2021-06-27] MEDS: ASPIRIN 81 MG CHEW TABLET PEG SCH (09:58)
[2021-06-27] MEDS: CARVedilol 6.25 MG TAB GT SCH ×2 (09:59→21:38)
[2021-06-27] MEDS: PIPERACILLIN/TAZOBACTAM SOD 3.375 GM in D5W MINI-BAG PLUS 50 ML IV SCH ×3 (09:59→21:38)
[2021-06-27] MEDS: LACTIC ACID 12% LOTION 225 GM BTL TOP SCH ×2 (09:59→21:38)
[2021-06-27 12:00] VITALS: BP 154/82
[2021-06-27 16:00] VITALS: BP 119/53
[2021-06-27 20:10] VITALS: BP 136/62
[2021-06-27] MEDS: ATORVASTATIN 20 MG TAB GT SCH (21:32)
[2021-06-27] MEDS: RIVAROXABAN 15 MG TAB (XARELTO) GT SCH (21:32)
[2021-06-27] MEDS: LEVEMIR (INSULIN DETEMIR) 1 UNITS/0.01ML SC SCH (21:32)
[2021-06-27] MEDS: LACTOBACILLUS ACIDOPHILUS CAP (BACID) PEG SCH (21:33)
[2021-06-27] MEDS: ACETAMINOPHEN TAB 650MG DOSE (2X325MG) GT PRN ×2 (21:33→22:33)
[2021-06-27] MEDS: TORSEMIDE 10 MG TABLET GT SCH (21:33)
[2021-06-28 00:15] VITALS: BP 116/54
[2021-06-28] MEDS: HumaLOG INSULIN (NovoLOG) PER UNIT SC SCH ×4 (00:50→17:35)
[2021-06-28] MEDS: PIPERACILLIN/TAZOBACTAM SOD 3.375 GM in D5W MINI-BAG PLUS 50 ML IV SCH ×2 (03:32→08:56)
[2021-06-28 04:07] VITALS: BP 108/55
[2021-06-28 04:33] LABS: BASO # 0.1 10^3/uL (0.0-0.2); BASO % 0.4 % (0.0-1.0); EOS # 0.1 10^3/uL (0.0-0.5); EOS % 0.6 % (0.0-3.0); HEMATOCRIT 30.6 % (42.0-52.0); HEMOGLOBIN 9.6 g/dl (13.5-17.5); LYMPH # 2.6 10^3/uL (1.5-5.0); LYMPH % 19.5 % (24.0-44.0); MEAN CORPUSCULAR HEMOGLOBIN 31.5 pg (27.0-33.0); MEAN CORPUSCULAR HGB CONC 31.4 g/dl (32.0-36.5); MEAN CORPUSCULAR VOLUME 100.3 fl (80.0-96.0); MONO % 7.5 % (2.0-8.0); NEUTROPHILS # 9.7 10^3/uL (1.5-8.5); NEUTROPHILS % 71.2 % (36.0-66.0); PLATELET COUNT, AUTOMATED 228 10^3/uL (150-450); RED BLOOD COUNT 3.05 10^6/uL (4.30-6.10); WHITE BLOOD COUNT 13.5 10^3/uL (4.0-10.0)
[2021-06-28 05:05] LABS: CREATININE FOR GFR 1.9 MG/DL (0.70-1.30); GLOMERULAR FILTRATION RATE 35.9 (>35); MAGNESIUM LEVEL 2.3 MG/DL (1.8-2.4)
[2021-06-28 08:14] VITALS: BP 110/50
[2021-06-28] MEDS: LABETALOL 100MG/20ML VIAL IV SCH ×4 (08:54→17:35)
[2021-06-28] MEDS: FERROUS GLUCONATE 324 MG TAB GT SCH ×2 (08:56→22:04)
[2021-06-28] MEDS: DOCUSATE SOD LIQ 100MG/10ML UDC GT SCH ×2 (08:56→22:04)
[2021-06-28] MEDS: ASPIRIN 81 MG CHEW TABLET PEG SCH (08:56)
[2021-06-28] MEDS: CARVedilol 6.25 MG TAB GT SCH ×2 (08:56→22:05)
[2021-06-28] MEDS: LACTIC ACID 12% LOTION 225 GM BTL TOP SCH ×2 (08:58→21:00)
[2021-06-28] MEDS: FUROSEMIDE 40MG/4ML VIAL (J1940) IV SCH (10:26)
[2021-06-28 12:45] VITALS: BP 110/52
[2021-06-28 16:00] VITALS: BP 148/70
[2021-06-28] MEDS: PIPERACILLIN/TAZOBACTAM SOD 2.25 GM in D5W MINI-BAG PLUS 50 ML IV SCH (17:35)
[2021-06-28 20:00] VITALS: BP 159/67
[2021-06-28] MEDS: RIVAROXABAN 15 MG TAB (XARELTO) GT SCH (21:00)
[2021-06-28] MEDS: LACTOBACILLUS ACIDOPHILUS CAP (BACID) PEG SCH (21:00)
[2021-06-28] MEDS: ATORVASTATIN 20 MG TAB GT SCH (22:04)
[2021-06-28] MEDS: LEVEMIR (INSULIN DETEMIR) 1 UNITS/0.01ML SC SCH (22:05)
[2021-06-29] VITALS: BP 150/72
[2021-06-29] MEDS: LABETALOL 100MG/20ML VIAL IV SCH ×3 (01:03→12:00)
[2021-06-29] MEDS: PIPERACILLIN/TAZOBACTAM SOD 2.25 GM in D5W MINI-BAG PLUS 50 ML IV SCH ×4 (01:03→17:26)
[2021-06-29] MEDS: HumaLOG INSULIN (NovoLOG) PER UNIT SC SCH ×4 (01:04→18:08)
[2021-06-29 03:17] LABS: BASO # 0.1 10^3/uL (0.0-0.2); BASO % 0.6 % (0.0-1.0); EOS # 0.3 10^3/uL (0.0-0.5); EOS % 2.4 % (0.0-3.0); HEMATOCRIT 29.5 % (42.0-52.0); HEMOGLOBIN 9.2 g/dl (13.5-17.5); LYMPH # 2.3 10^3/uL (1.5-5.0); LYMPH % 21.9 % (24.0-44.0); MEAN CORPUSCULAR HEMOGLOBIN 31.4 pg (27.0-33.0); MEAN CORPUSCULAR HGB CONC 31.2 g/dl (32.0-36.5); MEAN CORPUSCULAR VOLUME 100.7 fl (80.0-96.0); MONO # 0.9 10^3/uL (0.0-0.8); MONO % 8.2 % (2.0-8.0); NEUTROPHILS # 6.9 10^3/uL (1.5-8.5); PLATELET COUNT, AUTOMATED 241 10^3/uL (150-450); RED BLOOD COUNT 2.93 10^6/uL (4.30-6.10); WHITE BLOOD COUNT 10.4 10^3/uL (4.0-10.0)
[2021-06-29 03:57] LABS: CALCIUM LEVEL 9.1 MG/DL (8.8-10.2); CREATININE FOR GFR 2.05 MG/DL (0.70-1.30); GLOMERULAR FILTRATION RATE 32.9 (>35); MAGNESIUM LEVEL 2.3 MG/DL (1.8-2.4)
[2021-06-29 04:00] VITALS: BP 151/67
[2021-06-29 08:00] VITALS: BP 135/65
[2021-06-29] MEDS: DOCUSATE SOD LIQ 100MG/10ML UDC GT SCH ×2 (08:05→21:00)
[2021-06-29] MEDS: CARVedilol 6.25 MG TAB GT SCH ×2 (08:06→20:27)
[2021-06-29] MEDS: FUROSEMIDE 40MG/4ML VIAL (J1940) IV SCH (08:06)
[2021-06-29] MEDS: ASPIRIN 81 MG CHEW TABLET PEG SCH (08:06)
[2021-06-29] MEDS: LACTIC ACID 12% LOTION 225 GM BTL TOP SCH ×2 (08:12→20:28)
[2021-06-29] MEDS: FERROUS GLUCONATE 324 MG TAB GT SCH (08:12)
[2021-06-29 12:00] VITALS: BP 136/66
[2021-06-29] MEDS ORDERED: LIDOCAINE 1% MDV 20ML VIAL As Ordered ONE (14:18)
[2021-06-29] MEDS: D5W 1,000 ML IV SCH (16:24)
[2021-06-29] MEDS: SODIUM CHLORIDE 0.9% INJ 10 ML SYR IV SCH (17:26)
[2021-06-29 20:00] VITALS: BP 159/77
[2021-06-29] MEDS: ATORVASTATIN 20 MG TAB GT SCH (20:26)
[2021-06-29] MEDS: LACTOBACILLUS ACIDOPHILUS CAP (BACID) PEG SCH (20:26)
[2021-06-29] MEDS: RIVAROXABAN 15 MG TAB (XARELTO) GT SCH (20:27)
[2021-06-29] MEDS: LEVEMIR (INSULIN DETEMIR) 1 UNITS/0.01ML SC SCH (20:28)
[2021-06-30] MEDS: HumaLOG INSULIN (NovoLOG) PER UNIT SC SCH ×5 (00:07→23:45)
[2021-06-30] MEDS: PIPERACILLIN/TAZOBACTAM SOD 2.25 GM in D5W MINI-BAG PLUS 50 ML IV SCH ×4 (00:08→17:49)
[2021-06-30 04:00] VITALS: BP 153/67
[2021-06-30 05:19] LABS: PERCENT SATURATION 10.1 % (19.7-50.0)
[2021-06-30] MEDS: SODIUM CHLORIDE 0.9% INJ 10 ML SYR IV SCH ×2 (05:43→18:12)
[2021-06-30 08:00] VITALS: BP 150/78
[2021-06-30] MEDS: CARVedilol 6.25 MG TAB GT SCH ×2 (08:53→21:00)
[2021-06-30] MEDS: D5W 1,000 ML IV SCH ×2 (08:53→15:44)
[2021-06-30] MEDS: ASPIRIN 81 MG CHEW TABLET PEG SCH (08:53)
[2021-06-30] MEDS: LACTIC ACID 12% LOTION 225 GM BTL TOP SCH ×2 (08:54→21:00)
[2021-06-30] MEDS: TORSEMIDE 10 MG TABLET NG SCH (08:54)
[2021-06-30] MEDS: DOCUSATE SOD LIQ 100MG/10ML UDC GT SCH ×2 (08:55→20:56)
[2021-06-30 09:11] LABS: HEMATOCRIT 30.4 % (42.0-52.0); HEMOGLOBIN 9.7 g/dl (13.5-17.5); MEAN CORPUSCULAR HEMOGLOBIN 31.4 pg (27.0-33.0); MEAN CORPUSCULAR HGB CONC 31.9 g/dl (32.0-36.5); MEAN CORPUSCULAR VOLUME 98.4 fl (80.0-96.0); PLATELET COUNT, AUTOMATED 268 10^3/uL (150-450); RED BLOOD COUNT 3.09 10^6/uL (4.30-6.10); WHITE BLOOD COUNT 10.4 10^3/uL (4.0-10.0)
[2021-06-30 09:35] LABS: CALCIUM LEVEL 9.6 MG/DL (8.8-10.2); CREATININE FOR GFR 1.96 MG/DL (0.70-1.30); GLOMERULAR FILTRATION RATE 34.6 (>35); MAGNESIUM LEVEL 2.3 MG/DL (1.8-2.4); POTASSIUM SERUM 3.9 MEQ/L (3.5-5.1)
[2021-06-30] MEDS ORDERED: IRON SUCROSE 100MG 5ML VIAL (J1756 PER 1MG) IV SCH (09:50)
[2021-06-30] MEDS: IRON SUCROSE 250 MG in NS 237.5 ML IV SCH (12:08)
[2021-06-30 16:00] VITALS: BP 151/70
[2021-06-30 20:00] VITALS: BP 166/82
[2021-06-30] MEDS: LEVEMIR (INSULIN DETEMIR) 1 UNITS/0.01ML SC SCH (21:00)
[2021-06-30] MEDS: RIVAROXABAN 15 MG TAB (XARELTO) GT SCH (21:00)
[2021-06-30] MEDS: ATORVASTATIN 20 MG TAB GT SCH (21:00)
[2021-06-30] MEDS: LACTOBACILLUS ACIDOPHILUS CAP (BACID) PEG SCH (21:00)
[2021-07-01] VITALS: BP 167/81
[2021-07-01 04:00] VITALS: BP 158/74
[2021-07-01] MEDS: D5W 1,000 ML IV SCH (05:17)
[2021-07-01] MEDS: HumaLOG INSULIN (NovoLOG) PER UNIT SC SCH ×3 (05:22→18:07)
[2021-07-01 05:58] LABS: HEMATOCRIT 28.1 % (42.0-52.0); HEMOGLOBIN 9.2 g/dl (13.5-17.5); MEAN CORPUSCULAR HEMOGLOBIN 31.6 pg (27.0-33.0); MEAN CORPUSCULAR HGB CONC 32.7 g/dl (32.0-36.5); MEAN CORPUSCULAR VOLUME 96.6 fl (80.0-96.0); PLATELET COUNT, AUTOMATED 298 10^3/uL (150-450); RED BLOOD COUNT 2.91 10^6/uL (4.30-6.10); WHITE BLOOD COUNT 13.3 10^3/uL (4.0-10.0)
[2021-07-01] MEDS: PIPERACILLIN/TAZOBACTAM SOD 2.25 GM in D5W MINI-BAG PLUS 50 ML IV SCH ×5 (06:00→18:07)
[2021-07-01] MEDS: SODIUM CHLORIDE 0.9% INJ 10 ML SYR IV SCH ×2 (06:00→18:07)
[2021-07-01 06:23] LABS: CALCIUM LEVEL 9.5 MG/DL (8.8-10.2); CREATININE FOR GFR 1.75 MG/DL (0.70-1.30); GLOMERULAR FILTRATION RATE 39.4 (>35); MAGNESIUM LEVEL 2.3 MG/DL (1.8-2.4); POTASSIUM SERUM 4.6 MEQ/L (3.5-5.1)
[2021-07-01] MEDS: DOCUSATE SOD LIQ 100MG/10ML UDC GT SCH ×2 (07:52→20:15)
[2021-07-01 08:00] VITALS: BP 170/84
[2021-07-01] MEDS: ASPIRIN 81 MG CHEW TABLET PEG SCH (08:40)
[2021-07-01] MEDS: TORSEMIDE 10 MG TABLET NG SCH (08:41)
[2021-07-01] MEDS: CARVedilol 6.25 MG TAB GT SCH ×2 (08:41→20:15)
[2021-07-01] MEDS: LACTIC ACID 12% LOTION 225 GM BTL TOP SCH ×2 (08:41→20:16)
[2021-07-01] MEDS: SALIVA SUBSTITUTE(MOUTHKOTE) BTL MT PRN (08:42)
[2021-07-01] MEDS: IRON SUCROSE 250 MG in NS 237.5 ML IV SCH (11:08)
[2021-07-01 15:06] VITALS: BP 147/71
[2021-07-01 16:32] VITALS: BP 155/82
[2021-07-01] MEDS: ATORVASTATIN 20 MG TAB GT SCH (20:15)
[2021-07-01] MEDS: RIVAROXABAN 15 MG TAB (XARELTO) GT SCH (20:16)
[2021-07-01] MEDS: LACTOBACILLUS ACIDOPHILUS CAP (BACID) PEG SCH (20:16)
[2021-07-01 20:31] VITALS: BP 125/63
[2021-07-01] MEDS ORDERED: LEVEMIR (INSULIN DETEMIR) 1 UNITS/0.01ML SC SCH (21:00)
[2021-07-02] MEDS: HumaLOG INSULIN (NovoLOG) PER UNIT SC SCH ×4 (00:11→18:18)
[2021-07-02] MEDS: SODIUM CHLORIDE 0.9% INJ 10 ML SYR IV SCH ×2 (05:49→18:18)
[2021-07-02] MEDS: SODIUM CHLORIDE 0.9% INJ 10 ML SYR IV PRN ×2 (05:50→13:10)
[2021-07-02 06:00] VITALS: BP 128/64
[2021-07-02 06:22] LABS: HEMATOCRIT 25.9 % (42.0-52.0); HEMOGLOBIN 8.6 g/dl (13.5-17.5); MEAN CORPUSCULAR HEMOGLOBIN 31.7 pg (27.0-33.0); MEAN CORPUSCULAR HGB CONC 33.2 g/dl (32.0-36.5); MEAN CORPUSCULAR VOLUME 95.6 fl (80.0-96.0); PLATELET COUNT, AUTOMATED 296 10^3/uL (150-450); RED BLOOD COUNT 2.71 10^6/uL (4.30-6.10); WHITE BLOOD COUNT 19.2 10^3/uL (4.0-10.0)
[2021-07-02 07:14] LABS: CREATININE FOR GFR 1.77 MG/DL (0.70-1.30); GLOMERULAR FILTRATION RATE 38.9 (>35); MAGNESIUM LEVEL 2.6 MG/DL (1.8-2.4); POTASSIUM SERUM 4.6 MEQ/L (3.5-5.1)
[2021-07-02] MEDS: ASPIRIN 81 MG CHEW TABLET PEG SCH (10:53)
[2021-07-02] MEDS: TORSEMIDE 10 MG TABLET NG SCH (10:54)
[2021-07-02] MEDS: CARVedilol 6.25 MG TAB GT SCH ×2 (10:55→20:04)
[2021-07-02] MEDS: DOCUSATE SOD LIQ 100MG/10ML UDC GT SCH ×2 (10:55→20:03)
[2021-07-02] MEDS: LACTIC ACID 12% LOTION 225 GM BTL TOP SCH ×2 (10:56→20:04)
[2021-07-02] MEDS: IRON SUCROSE 250 MG in NS 237.5 ML IV SCH (11:12)
[2021-07-02] MEDS: LACTOBACILLUS ACIDOPHILUS CAP (BACID) PEG SCH (20:03)
[2021-07-02] MEDS: ATORVASTATIN 20 MG TAB GT SCH (20:03)
[2021-07-02] MEDS: RIVAROXABAN 15 MG TAB (XARELTO) GT SCH (20:03)
[2021-07-02] MEDS: LEVEMIR (INSULIN DETEMIR) 1 UNITS/0.01ML SC SCH (20:04)
[2021-07-02] MEDS: SALIVA SUBSTITUTE(MOUTHKOTE) BTL MT PRN (20:04)
[2021-07-02 21:00] VITALS: BP 141/68
[2021-07-03] MEDS: HumaLOG INSULIN (NovoLOG) PER UNIT SC SCH ×4 (00:01→19:00)
[2021-07-03] MEDS: SALIVA SUBSTITUTE(MOUTHKOTE) BTL MT PRN ×2 (00:11→04:18)
[2021-07-03 06:00] VITALS: BP 135/59
[2021-07-03] MEDS: SODIUM CHLORIDE 0.9% INJ 10 ML SYR IV SCH (06:00)
[2021-07-03] MEDS: SODIUM CHLORIDE 0.9% INJ 10 ML SYR IV PRN (06:01)
[2021-07-03 06:04] LABS: HEMATOCRIT 23.3 % (42.0-52.0); HEMOGLOBIN 7.6 g/dl (13.5-17.5); MEAN CORPUSCULAR HEMOGLOBIN 31.7 pg (27.0-33.0); MEAN CORPUSCULAR HGB CONC 32.6 g/dl (32.0-36.5); MEAN CORPUSCULAR VOLUME 97.1 fl (80.0-96.0); PLATELET COUNT, AUTOMATED 310 10^3/uL (150-450)
[2021-07-03 06:25] LABS: CALCIUM LEVEL 10.1 MG/DL (8.8-10.2); CREATININE FOR GFR 1.86 MG/DL (0.70-1.30); GLOMERULAR FILTRATION RATE 36.8 (>35); MAGNESIUM LEVEL 2.7 MG/DL (1.8-2.4); POTASSIUM SERUM 4.9 MEQ/L (3.5-5.1)
[2021-07-03] MEDS: ASPIRIN 81 MG CHEW TABLET PEG SCH (08:13)
[2021-07-03] MEDS: DOCUSATE SOD LIQ 100MG/10ML UDC GT SCH ×2 (08:13→21:00)
[2021-07-03] MEDS: CARVedilol 6.25 MG TAB GT SCH ×2 (08:13→23:42)
[2021-07-03] MEDS: LACTIC ACID 12% LOTION 225 GM BTL TOP SCH ×2 (08:13→21:00)
[2021-07-03] MEDS: TORSEMIDE 10 MG TABLET NG SCH (08:13)
[2021-07-03] MEDS ORDERED: SCOPOLAMINE 1MG TRANSDERMAL PATCH TOP SCH (09:00)
[2021-07-03 09:55] LABS: ABG BASE EXCESS 7.3 (-2.0-2.0); ABG HCO3 31.6 MEQ/L (22.0-26.0); ABG O2 SATURATION 97.2 % (95.0-99.0); ABG PARTIAL PRESSURE CO2 43.8 mmHg (35.0-45.0); ABG PARTIAL PRESSURE O2 91.3 mmHg (75.0-100.0); ABG STANDARD HCO3 31.1 MEQ/L (22.0-26.0); ABG TOTAL CO2 32.9 MEQ/L (23.0-31.0); ABG pH (ARTERIAL) 7.476 UNITS (7.350-7.450)
[2021-07-03] MEDS: IRON SUCROSE 250 MG in NS 237.5 ML IV SCH (12:00)
[2021-07-03 12:05] LABS: BASO # 0.1 10^3/uL (0.0-0.2); BASO % 0.3 % (0.0-1.0); EOS # 0.2 10^3/uL (0.0-0.5); HEMOGLOBIN 7.9 g/dl (13.5-17.5); LYMPH % 15.2 % (24.0-44.0); MEAN CORPUSCULAR HEMOGLOBIN 32.4 pg (27.0-33.0); MEAN CORPUSCULAR HGB CONC 32.9 g/dl (32.0-36.5); MEAN CORPUSCULAR VOLUME 98.4 fl (80.0-96.0); MONO % 8.9 % (2.0-8.0); NEUTROPHILS # 14.2 10^3/uL (1.5-8.5); NEUTROPHILS % 72.8 % (36.0-66.0); PLATELET COUNT, AUTOMATED 307 10^3/uL (150-450); RED BLOOD COUNT 2.44 10^6/uL (4.30-6.10); WHITE BLOOD COUNT 19.5 10^3/uL (4.0-10.0)
[2021-07-03 12:07] LABS: MONO # 1.7 10^3/uL (0.0-0.8)
[2021-07-03 14:00] VITALS: BP 133/60
[2021-07-03] MEDS ORDERED: ALBUTEROL 90 MCG/ACT 8GM HFA INHALER INH PRN (14:35)
[2021-07-03 15:13] VITALS: BP 141/63
[2021-07-03 15:56] LABS: ABG BASE EXCESS 8.1 (-2.0-2.0); ABG HCO3 32.7 MEQ/L (22.0-26.0); ABG O2 SATURATION 96.9 % (95.0-99.0); ABG PARTIAL PRESSURE CO2 46.8 mmHg (35.0-45.0); ABG PARTIAL PRESSURE O2 89.8 mmHg (75.0-100.0); ABG STANDARD HCO3 31.8 MEQ/L (22.0-26.0); ABG TOTAL CO2 34.1 MEQ/L (23.0-31.0); ABG pH (ARTERIAL) 7.462 UNITS (7.350-7.450)
[2021-07-03 16:00] VITALS: BP 139/63
[2021-07-03 19:58] VITALS: BP 133/62
[2021-07-03] MEDS: LEVEMIR (INSULIN DETEMIR) 1 UNITS/0.01ML SC SCH (23:35)
[2021-07-03] MEDS: ATORVASTATIN 20 MG TAB GT SCH (23:35)
[2021-07-03] MEDS: RIVAROXABAN 15 MG TAB (XARELTO) GT SCH (23:36)
[2021-07-03] MEDS: LACTOBACILLUS ACIDOPHILUS CAP (BACID) PEG SCH (23:36)
[2021-07-03 23:42] VITALS: BP 137/61
[2021-07-04] VITALS (10 sets, daily range): BP systolic 102–142; BP diastolic 56–67; O2SAT 91
[2021-07-04 01:11] LABS: ABG BASE EXCESS 4.7 (-2.0-2.0); ABG HCO3 28.8 MEQ/L (22.0-26.0); ABG O2 SATURATION 98.5 % (95.0-99.0); ABG PARTIAL PRESSURE CO2 40.9 mmHg (35.0-45.0); ABG STANDARD HCO3 28.7 MEQ/L (22.0-26.0); ABG TOTAL CO2 30.1 MEQ/L (23.0-31.0); ABG pH (ARTERIAL) 7.466 UNITS (7.350-7.450)
[2021-07-04] MEDS ORDERED: PIPERACILLIN/TAZOBACTAM SOD 3.375 GM in D5W MINI-BAG PLUS 50 ML IV SCH (01:30)
[2021-07-04] MEDS ORDERED: PIPERACILLIN/TAZOBACTAM SOD 2.25 GM in D5W MINI-BAG PLUS 50 ML IV SCH (01:40)
[2021-07-04] MEDS: PIPERACILLIN/TAZOBACTAM SOD 2.25 GM in D5W MINI-BAG PLUS 50 ML IV SCH ×2 (02:25→08:09)
[2021-07-04] MEDS: HumaLOG INSULIN (NovoLOG) PER UNIT SC SCH ×2 (02:25→05:15)
[2021-07-04] MEDS ORDERED: ALTEPLASE 2MG/2ML VIAL XX ONE (04:25)
[2021-07-04 04:46] LABS: HEMATOCRIT 26.5 % (42.0-52.0); HEMOGLOBIN 8.5 g/dl (13.5-17.5); MEAN CORPUSCULAR HEMOGLOBIN 32.4 pg (27.0-33.0); MEAN CORPUSCULAR HGB CONC 32.1 g/dl (32.0-36.5); MEAN CORPUSCULAR VOLUME 101.1 fl (80.0-96.0); PLATELET COUNT, AUTOMATED 383 10^3/uL (150-450); RED BLOOD COUNT 2.62 10^6/uL (4.30-6.10); WHITE BLOOD COUNT 25.1 10^3/uL (4.0-10.0)
[2021-07-04] MEDS ORDERED: NS 1,000 ML IV SCH (05:05)
[2021-07-04 05:06] LABS: CALCIUM LEVEL 10.4 MG/DL (8.8-10.2); CREATININE FOR GFR 1.97 MG/DL (0.70-1.30); GLOMERULAR FILTRATION RATE 34.4 (>35); MAGNESIUM LEVEL 2.8 MG/DL (1.8-2.4); POTASSIUM SERUM 4.9 MEQ/L (3.5-5.1)
[2021-07-04] MEDS: SODIUM CHLORIDE 0.9% INJ 10 ML SYR IV SCH (06:00)
[2021-07-04] MEDS: TORSEMIDE 10 MG TABLET NG SCH (09:00)
[2021-07-04] MEDS: ASPIRIN 81 MG CHEW TABLET PEG SCH (09:00)
[2021-07-04] MEDS: LACTIC ACID 12% LOTION 225 GM BTL TOP SCH (09:00)
[2021-07-04] MEDS: CARVedilol 6.25 MG TAB GT SCH (09:00)
[2021-07-04] MEDS: DOCUSATE SOD LIQ 100MG/10ML UDC GT SCH (09:00)
[2021-07-04] MEDS ORDERED: SCOPOLAMINE 1MG TRANSDERMAL PATCH TOP PRN (10:05)
[2021-07-04] MEDS ORDERED: LORazepam 2 MG/ML VIAL As Ordered ONE ×2 (10:52→13:00)
[2021-07-04] MEDS: LORazepam 2 MG/ML VIAL IV PRN ×4 (10:57→18:01)
[2021-07-04] MEDS: MORPHINE 4 MG/ML 1ML VIAL/SYRINGE (J2270) IV PRN ×2 (10:58→13:06)
[2021-07-05] MEDS ORDERED: GASTROGRAFIN SOLUTION 30ML (Q9963) NG SCH (18:00)
== END 2021-07-04 19:46 | disposition expired | DRG 64 ==
LOC: M ED 10:19 → EDBD 10:19 → M ED INP 12:58 → ENRESERV 06-23 12:40 → M PCU 06-23 13:35 → M MSPAV 07-01 16:20 → M PCU 07-03 15:13 → M ICU 07-04 01:15
PROVIDERS: ADMIT Internal Medicine; ATTEND Internal Medicine
PROC: 06HB33Z Insertion of Infusion Device into Left Renal Vein, Percutaneous Approach (ICD-10-PCS; principal; 2021-06-29 16:00)
DX: I63.512 Cerebral infarction due to unspecified occlusion or stenosis of left middle cerebral artery (principal); J18.9 Pneumonia, unspecified organism; I50.33 Acute on chronic diastolic (congestive) heart failure; J96.01 Acute respiratory failure with hypoxia; J69.0 Pneumonitis due to inhalation of food and vomit; G81.91 Hemiplegia, unspecified affecting right dominant side; N39.0 Urinary tract infection, site not specified; N17.9 Acute kidney failure, unspecified; J98.11 Atelectasis; I13.0 Hypertensive heart and chronic kidney disease with heart failure and stage 1 through stage 4 chronic kidney disease, or unspecified chronic kidney disease; Z51.5 Encounter for palliative care; Z66 Do not resuscitate; R47.81 Slurred speech; R29.810 Facial weakness; E11.22 Type 2 diabetes mellitus with diabetic chronic kidney disease; N18.30 Chronic kidney disease, stage 3 unspecified; N40.0 Benign prostatic hyperplasia without lower urinary tract symptoms; M19.90 Unspecified osteoarthritis, unspecified site; B95.2 Enterococcus as the cause of diseases classified elsewhere; D64.9 Anemia, unspecified; H91.93 Unspecified hearing loss, bilateral; B96.1 Klebsiella pneumoniae [K. pneumoniae] as the cause of diseases classified elsewhere; R13.10 Dysphagia, unspecified; J98.09 Other diseases of bronchus, not elsewhere classified; R07.89 Other chest pain; E55.9 Vitamin D deficiency, unspecified; R47.1 Dysarthria and anarthria; Z86.16 Personal history of COVID-19; Z86.711 Personal history of pulmonary embolism; Z86.718 Personal history of other venous thrombosis and embolism; Z90.49 Acquired absence of other specified parts of digestive tract; Z87.891 Personal history of nicotine dependence; Z79.01 Long term (current) use of anticoagulants; Z20.822 Contact with and (suspected) exposure to COVID-19; Z79.4 Long term (current) use of insulin; Z79.899 Other long term (current) drug therapy